=== PATIENT | female | born 1955 | race African-American/Black ===

== ENCOUNTER 2016-07-13 08:17 | Emergency (ER) | payer MEDICARE ==
[2016-07-13 08:27] VITALS: BP 139/86
--- NOTE | 2016-07-13 08:34 | UC ---
Headache HPI - HPI Summary HPI Summary: 60 yo female has had right holiness pain intermittently x 3-4 days Achy Responds to advil no jaw claudication no visual c/o no n/v no f/c - History Of Current Complaint Chief Complaint: UCHeadache Stated Complaint: HEADACHE Time Seen by Provider: 07/13/16 08:32 Hx Obtained From: Patient Onset/Duration: Gradual Onset, Lasting Hours Onset Of Symptoms: Gradual Initially Headache Was: Moderate Currently Pain Is: Moderate Pain Intensity: 4 Pain Scale Used: 0-10 Numeric Timing: Intermittent, Lasting:, Hours Character: Dull Location of Headache: Temporal Aggravating Factor: Nothing Allevating Factors: Medication - advil Associated Signs And Symptoms: Positive: Negative - Allergies/Home Medications Allergies/Adverse Reactions: Allergies Allergy/AdvReac Type Severity Reaction Status Date / Time Aspirin Allergy Intermediate Nausea And Unverified 01/22/15 09:39 Vomiting Erythromycin Allergy Intermediate Nausea And Unverified 01/22/15 09:39 Vomiting Home Medications: Home Medications Albuterol HFA INHALER* [Ventolin HFA Inhaler*] 07/13/16 [History] PMH/Surg Hx/FS Hx/Imm Hx Endocrine History Of: Reports: Thyroid Disease Denies: Diabetes, Hypothyroidism Cardiovascular History Of: Reports: Hypertension Denies: Cardiac Disorders, Pacemaker/ICD Respiratory History Of: Reports: Bronchitis Denies: COPD, Asthma GI/ History Of: Denies: Ulcer Cancer History Of: Denies: Breast Cancer - Surgical History Surgical History: Yes Surgery Procedure, Year, and Place: partial hysterectomy - Family History Known Family History: Positive: Hypertension - Social History Alcohol Use: Rare Substance Use Type: None Smoking Status (MU): Former Smoker Type: Cigarettes Amount Used/How Often: quit 3 months ago Length of Time of Smoking/Using Tobacco: 10 years Have You Smoked in the Last Year: No Household Exposure Type: Cigarettes - Immunization History Most Recent Influenza Vaccination: 2973-4853 Season Review of Systems Constitutional: Negative Skin: Negative Eyes: Negative ENT: Negative Respiratory: Negative Cardiovascular: Negative Gastrointestinal: Negative Genitourinary: Negative Motor: Negative Neurovascular: Negative Musculoskeletal: Negative Neurological: Headache Psychological: Negative All Other Systems Reviewed And Are Negative: Yes Physical Exam Triage Information Reviewed: Yes Appearance: Well-Appearing, No Pain Distress, Well-Nourished Vital Signs: Initial Vital Signs Temp 97.5 F 07/13/16 08:19 Pulse 72 07/13/16 08:19 Resp 16 07/13/16 08:19 BP 139/86 07/13/16 08:19 Pulse Ox 99 07/13/16 08:19 Eyes: Positive: Conjunctiva Clear, Other: - eomi/perrl/fundi- benign. Negative : Conjunctiva Inflamed, Discharge ENT: Positive: Hearing grossly normal, Pharynx normal, TMs normal, Other: - slight tenderness overlying right temporal artery. Negative: Trismus, Muffled/ hoarse voice Neck: Positive: Nontender, No Lymphadenopathy, Other: - decreased ROM/no bruits Respiratory: Positive: Lungs clear, Normal breath sounds, No respiratory distress, No accessory muscle use. Negative: Respiratory distress, Decreased breath sounds Cardiovascular: Positive: RRR, No Murmur Musculoskeletal: Positive: ROM Intact, No Edema Neurological Exam: Normal Neurological: Positive: Alert Psychological Exam: Normal Skin Exam: Normal Headache Course/Dx - Differential Dx/Diagnosis Provider Diagnoses: right temporal pain...? temoral arteritis Discharge - Discharge Plan Condition: Stable Disposition: HOME Prescriptions: Naproxen [Naproxen 500 MG TABS] 500 mg PO BID PRN #30 tab PRN Reason: Pain Prednisone 60 mg PO DAILY #9 tab Patient Education Materials: Temporal Arteritis (ED) Referrals: Darya Solis MD [Primary Care Provider] - As Soon As Possible Additional Instructions: I am unsure of the cause of your headache blood work is pending It could be due to temporal arteritis To ER for new or worsening symptoms See your MD as soon as possible If your ESR (blood test) is elevated you may need to be scheduled for a temporal artery biopsy and need to be on buttermaker helper steroids
[2016-07-13] MEDS ORDERED: predniSONE TAB* 20 MG PO ONE (08:44)
[2016-07-13 12:11] LABS: Hematocrit 35 % (35-47); Hemoglobin 11.6 g/dl (12.0-16.0); Mean Corpuscular HGB Conc 33 g/dl (31-36); Mean Corpuscular Hemoglobin 30 pg (27-31); Mean Corpuscular Volume 89 fL (80-97); Mean Platelet Volume 8 um3 (7.4-10.4); Red Blood Count 3.89 10^6/ul (4.0-5.4); Red Cell Distribution Width 13 % (10.5-15); White Blood Count 5.3 10^3/ul (3.5-10.8)
[2016-07-13 13:00] LABS: Erythrocyte Sed Rate 19 mm/Hr (0-30)
== END 2016-07-13 09:14 | disposition home or self-care (01) ==
LOC: UCEAST 08:17
DX: G44.89 Other headache syndrome (principal); E07.9 Disorder of thyroid, unspecified; I10 Essential (primary) hypertension; Z87.891 Personal history of nicotine dependence; Z88.6 Allergy status to analgesic agent
CPT/HCPCS: 36415; 85025; 85652; 99212; G0463; J7512

== ENCOUNTER 2016-11-10 08:08 | Emergency (ER) | payer MEDICARE ==
[2016-11-10 08:55] VITALS: BP 130/75
--- NOTE | 2016-11-10 09:14 | UC ---
Dental HPI - HPI Summary HPI Summary: Patient has had pain under the back molar on the left side for about a week, it is increasing and now there is swelling and lef sided maxillary sinus pressure. - History of Current Complaint Chief Complaint: UCDentalProblem Stated Complaint: DENTAL COMPLAINT Time Seen by Provider: 11/10/16 08:41 Hx Obtained From: Patient ?: No Onset/Duration: Sudden Onset, Lasting Days Severity: Moderate Aggravating: Chewing Alleviating: Nothing Related History: Previous Dental Care on Same Tooth, Swelling - Allergies/Home Medications Allergies/Adverse Reactions: Allergies Allergy/AdvReac Type Severity Reaction Status Date / Time Aspirin Allergy Intermediate Nausea And Unverified 11/10/16 08:47 Vomiting Erythromycin Allergy Intermediate Nausea And Unverified 11/10/16 08:47 Vomiting Home Medications: Home Medications Fluticasone-Salmeterol 100-50* [Advair Diskus 100-50*] 1 puff PO BID 11/10/16 [ History Confirmed 11/10/16] PMH/Surg Hx/FS Hx/Imm Hx Previously Healthy: Yes Endocrine History Of: Reports: Thyroid Disease Denies: Diabetes, Hypothyroidism Cardiovascular History Of: Reports: Hypertension Denies: Cardiac Disorders, Pacemaker/ICD Respiratory History Of: Reports: Bronchitis Denies: COPD, Asthma GI/ History Of: Denies: Ulcer Cancer History Of: Denies: Breast Cancer - Surgical History Surgical History: Yes Surgery Procedure, Year, and Place: partial hysterectomy - Family History Known Family History: Positive: Hypertension - Social History Alcohol Use: None Substance Use Type: None Smoking Status (MU): Former Smoker Type: Cigarettes Amount Used/How Often: quit 3 months ago Length of Time of Smoking/Using Tobacco: 10 years Have You Smoked in the Last Year: No Household Exposure Type: Cigarettes - Immunization History Most Recent Influenza Vaccination: [id number] Season Review of Systems Constitutional: Negative Skin: Negative Eyes: Negative ENT: Dental Pain Respiratory: Negative Cardiovascular: Negative Gastrointestinal: Negative Genitourinary: Negative Motor: Negative Neurovascular: Negative Musculoskeletal: Negative Neurological: Negative Psychological: Negative All Other Systems Reviewed And Are Negative: Yes Physical Exam Triage Information Reviewed: Yes Appearance: Well-Nourished, Ill-Appearing, Pain Distress Vital Signs: Initial Vital Signs Pulse 78 11/10/16 08:43 Resp 20 11/10/16 08:43 BP 130/75 11/10/16 08:43 Pulse Ox 99 11/10/16 08:43 Vital Signs Reviewed: Yes Eye Exam: Normal Eyes: Positive: Conjunctiva Clear ENT Exam: Normal ENT: Positive: Hearing grossly normal, Pharynx normal, TMs normal Dental: Positive: Gross Decay/Caries @, Abscess @ - far back left molar, tooth fracture and multiple dental caries present, Cervical Lymphadenopathy - left submandibular Neck exam: Normal Neck: Positive: Supple, Nontender, No Lymphadenopathy Respiratory Exam: Normal Respiratory: Positive: Chest non-tender, Lungs clear, Normal breath sounds Cardiovascular Exam: Normal Cardiovascular: Positive: RRR, No Murmur, Pulses Normal Abdominal Exam: Normal Abdomen Description: Positive: Nontender, No Organomegaly, Soft Bowel Sounds: Positive: Present Musculoskeletal Exam: Normal Musculoskeletal: Positive: Strength Intact, ROM Intact, No Edema Neurological Exam: Normal Neurological: Positive: Alert, Muscle Tone Normal Psychological Exam: Normal Skin Exam: Normal Dental Complaint Course/Dx - Course Course Of Treatment: hx obtained, exam performed, meds reviewed, treated for dental abcess and. recommend follow up at her dentist. - Differential Dx/Diagnosis Differential Diagnosis/Dx: Dental Abscess, Dental Caries, Fractured Tooth Provider Diagnoses: dental abcess. sinus pain. lymphadenopathy Discharge - Discharge Plan Condition: Stable Disposition: HOME Prescriptions: Amoxicillin/Clavulanate TAB* [Augmentin TAB 875*] 875 mg PO BID #20 tab Patient Education Materials: Dental Abscess (ED) Referrals: Darya Solis MD [Primary Care Provider] - Additional Instructions: take the medication as prescribed. Increase your fluid intaket Salt water gargles to keep mouth clean. FOllow up with your dentist
== END 2016-11-10 09:21 | disposition home or self-care (01) ==
LOC: UCEAST 08:08
DX: K04.7 Periapical abscess without sinus (principal); J34.89 Other specified disorders of nose and nasal sinuses; R59.1 Generalized enlarged lymph nodes; Z88.6 Allergy status to analgesic agent; Z88.1 Allergy status to other antibiotic agents; E07.9 Disorder of thyroid, unspecified; I10 Essential (primary) hypertension; Z90.711 Acquired absence of uterus with remaining cervical stump; Z87.891 Personal history of nicotine dependence
CPT/HCPCS: 99212; G0463

== ENCOUNTER 2017-10-22 08:54 | Inpatient (IN) | payer MEDICARE ==
[2017-10-22] MEDS ORDERED: NS 0.9% 1000 ML* 1,000 ML IV ONE (09:00)
[2017-10-22] MEDS ORDERED: Ibuprofen TAB* 600 MG PO ONE (09:09)
[2017-10-22] MEDS ORDERED: methylPREDNISolone 125 MG* 2 ML VIAL IV ONE (09:10)
[2017-10-22] MEDS ORDERED: Albuterol/Ipratropium NEB.SOL* Albuterol 2.5 MG/Ipratropium 0.5 MG 3 ML INH ONE (09:10)
[2017-10-22] MEDS: NS 0.9% 1000 ML* 1,500 ML IV ONE ×2 (09:19→09:33)
[2017-10-22 09:31] LABS: ABS Basophils 0 10^3/ul (0-0.2); ABS Eosinophils 0 10^3/ul (0-0.6); ABS Lymphocytes 0.8 10^3/ul (1.0-4.8); ABS Monocytes 0.7 10^3/ul (0-0.8); ABS Neutrophils 4.7 10^3/ul (1.5-7.7); ABS Nucleated RBC 0 10^3/ul; Eosinophil % 0.1 % (0-6); Hematocrit 36 % (35-47); Hemoglobin 12.4 g/dl (12.0-16.0); Mean Corpuscular HGB Conc 34 g/dl (31-36); Mean Corpuscular Hemoglobin 31 pg (27-31); Mean Corpuscular Volume 90 fL (80-97); Mean Platelet Volume 8.3 um3 (7.4-10.4); Nucleated Red Blood Cells % 0; Platelet Count 199 10^3/ul (150-450); Red Blood Count 4.03 10^6/ul (4.0-5.4); Red Cell Distribution Width 14 % (10.5-15); White Blood Count 6.2 10^3/ul (3.5-10.8)
--- NOTE | 2017-10-22 09:44 | RAD ---
INDICATION: Cough and fever COMPARISON: Chest x-ray dated December 08, 2014 TECHNIQUE: PA and lateral views of the chest were obtained. FINDINGS: The heart and mediastinum are normal in size and contour. The lungs are grossly clear. There is no evidence of large pleural effusion. Visualized bones are normal for the patient's age. There is no radiographic evidence of free air beneath the diaphragm IMPRESSION: No radiographic evidence of acute cardiopulmonary disease.
[2017-10-22 09:51] LABS: EGFR Non-African American 34.3 (>60)
[2017-10-22] MEDS ORDERED: Oseltamivir CAP* 75 MG CAP PO ONE (09:54)
[2017-10-22] MEDS ORDERED: Acetaminophen TAB* 325 MG PO ONE (10:03)
[2017-10-22] MEDS ORDERED: Potassium Chloride LIQUID* 20 MEQ PACKET PO ONE (10:05)
[2017-10-22] MEDS ORDERED: Potassium Chloride LIQUID* 20 MEQ PACKET ONE (10:08)
[2017-10-22] MEDS ORDERED: Potassium Chlor TAB* 20 MEQ TAB.ER PO ONE (11:04)
[2017-10-22] MEDS ORDERED: NS 0.9% 1000 ML* 1,000 ML IV SCH (11:15)
[2017-10-22] MEDS ORDERED: Omeprazole CAP* 20 MG PO PRN (11:16)
[2017-10-22] MEDS ORDERED: Ondansetron INJ* 2 MG/ML VIAL IV PRN (11:18)
[2017-10-22] MEDS: Heparin VIAL(*) 5000 UNITS/ML VIAL (FIVE THOUSAND) SUBCUT SCH ×2 (12:59→20:50)
--- NOTE | 2017-10-22 13:36 | HP ---
CC: Dr. Solis * HISTORY AND PHYSICAL: DATE OF ADMISSION: 10/22/17 PRIMARY CARE PROVIDER: Dr. Solis. HEALTHCARE PROXY: Elicia Contreras, her daughter. CODE STATUS: Full. SOURCE OF INFORMATION: History is obtained from interview with patient, review of past medical records. RELIABILITY: Good. CHIEF COMPLAINT: Cough and lightheadedness. HISTORY OF PRESENT ILLNESS: This is a 62-year-old female with past medical history of COPD, has been in her usual state of health until 2 days prior to presentation, started to experience increased sinus congestion as well as sneezing. She started taking Mucinex as well as cough syrup; however, progressed to develop dry cough. Yesterday, she felt that her chest felt little tight. She has tried using her nebulizer, although she noted she did not feel wheezy. In the afternoon, she noted increase in the sneezing, but no other fevers or chills. However, night prior to presentation around 1 a.m., she woke up coughing, had an episode of urinary incontinence associated with chills and shaking that still continued to the morning. She had an appointment with her PCP and while walking down the stairs, she felt lightheaded like she was going to faint. She sat down, put on her shoes without incident; however, upon arriving at her PCP's office and walking through the door, she again felt lightheaded like she was going to pass out. She was seen by Dr. Solis. The patient reports that her blood pressure was low with systolics of 88/unknown diastolic. Because of the lightheadedness, low blood pressure, the patient was referred to [facility] and was transported via EMS. In the emergency room, the patient was noted to be hypotensive; however, had a fever or 103.4, was given a single dose of 125 mg methylprednisolone prior to positive influenza B testing returned. When seen by this author, the patient again noted she does not feel wheezy and her lightheadedness has improved. However, is concerned that if she stands up, she may lose consciousness and/or fall and is concerned about her safety at home. 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 PAST MEDICAL HISTORY: Includes asthma, COPD, hypotension, left ventricular diastolic dysfunction without known heart failure exacerbations, GERD. PAST SURGICAL HISTORY: Positive for partial hysterectomy. MEDICATIONS: Home medications are reviewed, notable for: 1. Tizanidine 1 to 2 mg 3 times a day as needed for muscle spasm. 2. Hydrochlorothiazide 12.5 mg daily. 3. Atorvastatin 10 mg daily. 4. Omeprazole 40 mg as needed. 5. Estradiol 1 mg daily. 6. Synthroid 50 mcg daily. 7. Advair 100/50 one puff twice daily. 8. Lotrel 10/20 mg daily. 9. Albuterol HFA 2 puffs every 4 hours as needed for wheezing or shortness of breath. ALLERGIES: To ASPIRIN, ERYTHROMYCIN BASE. FAMILY HISTORY: Father with prostate cancer; mother at 95, did have hypertension. SOCIAL HISTORY: Smoked for approximately for 40 years, 1 pack per day; however , does have episodes of quitting for 7 years at a time. No alcohol. Retired from [employer]. REVIEW OF SYSTEMS: As per HPI includes, recent cough, sneezing, lightheadedness /presyncope, decreased p.o. intake, shaking chills, and sinus congestion. Otherwise, all other systems negative. PHYSICAL EXAMINATION GENERAL: Sitting up in bed, interactive, pleasant, in no apparent distress, talks in full sentences. VITAL SIGNS: In the emergency room, 113/85, actually when seen by this author 130/85; respiratory rate is 17; 96% on room air; heart rate 98; T-max 103.4 degrees Fahrenheit. NECK: She has non-elevated JVD. No cervical or supraclavicular lymphadenopathy. LUNGS: Her lungs are largely clear with trace wheeze, end expiratory in the bases. HEART: Tachycardic heart rate with a regular rhythm. No murmurs, rubs, or gallops. ABDOMEN: Soft, nontender, nondistended. EXTREMITIES: Warm and well perfused. No clubbing, cyanosis, or edema. NEUROLOGIC: She is alert and oriented x3. Cranial nerves are intact. DIAGNOSTIC STUDIES/LAB DATA: Labs notable for positive influenza B. Potassium 2.7, BUN 14, creatinine 1.5. White blood cell count is 6.2. Data reviewed: Chest x-ray notable for no radiographic evidence of acute cardiopulmonary disease. EKG: Normal sinus rhythm. No ST or T-wave changes. ASSESSMENT AND PLAN: A 62-year-old female with history of asthma as well as chronic obstructive pulmonary disease, presenting with high fever, sensations of presyncope/lightheadedness in the setting of high fevers, found to have positive influenza B. 1. Influenza B complicated by sensation that she almost lost consciousness, high fevers, dehydration. Admit to the hospital at least overnight, start Tamiflu. Received normal saline in the emergency room, will continue at 100 cc/ hour for 1 additional liter, otherwise supportive care. She looks as if she has improved already; however, concerned about discharging home as she is still lightheaded and concerned she may lose consciousness upon standing. 2. Chronic obstructive pulmonary disease, not in exacerbation, received 125 mg IV methylprednisolone in the emergency room, not continue. Continue Advair and albuterol as needed. 3. Hypokalemia, suspect in the setting of recent illness, decreased appetite, increased urination. Received 80 mEq in the emergency room, we will recheck this afternoon. Replete as needed. 4. Increased creatinine. Fluid as above, suspect prerenal. 5. Hypotension. Continue Lotrel, hold hydrochlorothiazide. 6. DVT prophylaxis. Heparin subcu. [id number]/[facility] #: [id number] [facility]
[2017-10-22 14:25] LABS: Urine Appearance Clear; Urine Blood Negative (Negative); Urine Color Straw; Urine Ketones Negative (Negative); Urine Protein Negative (Negative); Urine Specific Gravity 1.004 (1.010-1.030); Urine Urobilinogen Negative (Negative)
[2017-10-22] MEDS: tiZANidine TAB* 2 MG PO PRN ×2 (15:14→20:48)
[2017-10-22 18:04] LABS: EGFR Non-African American 39.6 (>60)
[2017-10-22] MEDS: Mometasone/Formoter 100/5 MDI INH SCH (20:08)
[2017-10-22] MEDS: Oseltamivir CAP* 30 MG CAP PO SCH (20:48)
[2017-10-22] MEDS: Benzonatate CAP* 100 MG PO PRN (21:20)
[2017-10-23] MEDS: Albuterol HFA INHALER* 8 gm MDI INH PRN (03:51)
[2017-10-23] MEDS: Acetaminophen TAB* 325 MG PO PRN (03:56)
[2017-10-23] MEDS: Levothyroxine TAB* 50 MCG TAB PO SCH (05:55)
[2017-10-23] MEDS: Benzonatate CAP* 100 MG PO PRN ×2 (05:55→20:09)
[2017-10-23] MEDS: Heparin VIAL(*) 5000 UNITS/ML VIAL (FIVE THOUSAND) SUBCUT SCH ×3 (05:56→21:20)
[2017-10-23 06:18] LABS: EGFR Non-African American 45.8 (>60)
[2017-10-23] MEDS: Mometasone/Formoter 100/5 MDI INH SCH ×2 (08:00→19:24)
[2017-10-23] MEDS: Lisinopril TAB* 10 MG PO SCH (08:18)
[2017-10-23] MEDS: amLODIPine TAB* 5 MG PO SCH (08:18)
[2017-10-23] MEDS: Oseltamivir CAP* 30 MG CAP PO SCH ×2 (08:18→20:09)
[2017-10-23] MEDS: Atorvastatin* 10 MG TAB PO SCH (08:19)
[2017-10-23] MEDS: tiZANidine TAB* 2 MG PO PRN ×2 (08:26→20:09)
--- NOTE | 2017-10-23 09:04 | PN ---
Subjective Date of Service: 10/23/17 Interval History: Mrs. Miller is doing better this AM. Still feels tired, but denies chest pain or SOB. Cough has improved with nebs and Mucinex. Denies fever, chills or body aches. Has not been ambulating yet, but planning to do that after breakfast. She has no new complaints. Family History: Unchanged from Admission Social History: Unchanged from Admission Past Medical History: Unchanged from Admission Objective Active Medications: Acetaminophen (Tylenol Tab*) 650 mg PO Q4H PRN PRN Reason: FEVER/PAIN Last Admin: 10/23/17 03:56 Dose: 650 mg Albuterol (Ventolin Hfa Inhaler*) 2 puff INH Q4H PRN PRN Reason: SOB/WHEEZING Last Admin: 10/23/17 03:51 Dose: 2 puff Amlodipine Besylate (Norvasc Tab*) 10 mg PO DAILY [facility] Last Admin: 10/23/17 08:18 Dose: 10 mg Atorvastatin Calcium (Lipitor*) 10 mg PO DAILY [facility] Last Admin: 10/23/17 08:19 Dose: 10 mg Benzonatate (Tessalon Cap*) 100 mg PO BID PRN PRN Reason: COUGH Last Admin: 10/23/17 05:55 Dose: 100 mg Heparin Sodium (Porcine) (Heparin Vial(*)) 5,000 units SUBCUT Q8HR [facility] Last Admin: 10/23/17 05:56 Dose: 5,000 units Levothyroxine Sodium (Synthroid Tab*) 50 mcg PO 0600 [facility] Last Admin: 10/23/17 05:55 Dose: 50 mcg Lisinopril (Prinivil Tab*) 20 mg PO DAILY [facility] Last Admin: 10/23/17 08:18 Dose: 20 mg Mometasone Furoate/Formoterol Fumar (Dulera 100/5 Mdi*) 2 puff INH BID [facility] Last Admin: 10/23/17 08:00 Dose: 2 puff Omeprazole (Prilosec Cap*) 40 mg PO DAILY PRN PRN Reason: DYSPEPSIA Ondansetron HCl (Zofran Inj*) 4 mg IV Q4H PRN PRN Reason: NAUSEA/VOMITING Oseltamivir Phosphate (Tamiflu Cap*) 30 mg PO BID [facility] Stop: 10/27/17 09:01 Last Admin: 10/23/17 08:18 Dose: 30 mg Tizanidine HCl (Zanaflex Tab*) 1 mg PO TID PRN PRN Reason: SPASMS - MUSCLE Last Admin: 10/23/17 08:26 Dose: 1 mg Vital Signs - 8 hr 10/23/17 10/23/17 03:33 07:40 Temperature 98.1 F 98.4 F Pulse Rate 70 65 Respiratory 16 21 Rate Blood Pressure 140/72 129/67 (mmHg) O2 Sat by Pulse 96 96 Oximetry Oxygen Devices in Use Now: None Appearance: Appears healthy and well developed. Sitting up on her bed, eating breakfast, comfortable and in NAD. Eyes: No Scleral Icterus, PERRLA Ears/Nose/Mouth/Throat: Clear Oropharnyx, Mucous Membranes Moist Neck: NL Appearance and Movements; NL JVP, Trachea Midline Respiratory: Symmetrical Chest Expansion and Respiratory Effort, - - Mild bibasilar wheezes noted, no rales or rhonchi. Cardiovascular: NL Sounds; No Murmurs; No JVD, RRR Abdominal: NL Sounds; No Tenderness; No Distention, No Hepatosplenomegaly Lymphatic: No Cervical Adenopathy Extremities: No Edema, No Clubbing, Cyanosis Skin: No Rash or Ulcers Neurological: Alert and Oriented x 3, NL Sensation Lines/Tubes/Other Access: Clean, Dry and Intact Peripheral IV Nutrition: Taking PO's Result Diagrams: 10/22/17 09:20 10/23/17 05:49 Diagnostic Imaging: Patient Name: KYRIE MILLER Medical Record#: [id number] Ordering Physician: Josue Valenzuela MD Acct.#: [id number] : 1955 Age: 62 Sex: F Location: EMERGENCY DEPARTMENT Exam Date: 10/22/17908 ADM Status: REG ER Order Information: CHEST PA & LAT 2 VWS Accession Number: [id number] CPT: 73708 INDICATION: Cough and fever COMPARISON: Chest x-ray dated December 08, 2014 IMPRESSION: No radiographic evidence of acute cardiopulmonary disease. EKG Data: EKG INTERPRETATION ECG Report Patient Name KYRIE MILLER Birthdate 1955 Sex F Order Number [id number] Date of ECG 10/22/2017 09:11:15 Interpretation Sinus rhythm.normal P axis, V-rate 60- 99 Borderline repolarization - ABNORMAL ECG - Assess/Plan/Problems-Billing Assessment: A 62 y/o female with Hx asthma and COPD, presented to ED with URI symptoms and fever, who was found to have Influenza B, dehydration, hypokalemia and elevated creatinine. - Patient Problems (1) Influenza B Current Visit: Yes Status: Acute Comment: - Started Tamiflu and will continue for next 5 days - Dropplet precautions - Fever resolved with Tylenol - Supportive care (2) COPD Current Visit: Yes Status: Active Comment: - Continue albuterol and advir - No exacerbations noted - Recieved a dose of solumedrol in ED, will not continue (3) Hypokalemia Current Visit: Yes Comment: - Replace K - Check labs in AM (4) Dehydration Current Visit: Yes Comment: - Improving already with 1 liter bolus in ED - Continue gentle hydration and encourage PO intake (5) Hypotension Current Visit: Yes Comment: - Resolved (6) Elevated serum creatinine Current Visit: Yes Comment: - Likely in setting of dehydration and viral illness - Continue IVF - Improving (7) Full code status Current Visit: Yes (8) DVT prophylaxis Current Visit: Yes Comment: - SubQ Heparin Status and Disposition: Inpatient for anti-viral therapy, neb treatments and supportive care. Patient is feeling better, worried about going home too early since she lives alone. Anticipate discharge when clinically stable.
[2017-10-23] MEDS: guaiFENesin LIQ* 100 MG/5 ML UDC PO PRN ×2 (10:52→20:09)
[2017-10-23] MEDS: CMCS: Melatonin (NF) 3 MG TAB PO PRN (20:46)
[2017-10-24] MEDS: Albuterol HFA INHALER* 8 gm MDI INH PRN (01:16)
[2017-10-24] MEDS: Acetaminophen TAB* 325 MG PO PRN (01:17)
[2017-10-24] MEDS: Heparin VIAL(*) 5000 UNITS/ML VIAL (FIVE THOUSAND) SUBCUT SCH ×3 (05:41→21:17)
[2017-10-24] MEDS: Levothyroxine TAB* 50 MCG TAB PO SCH (05:42)
[2017-10-24] MEDS: Mometasone/Formoter 100/5 MDI INH SCH ×2 (07:08→19:09)
[2017-10-24] MEDS: Lisinopril TAB* 10 MG PO SCH (08:14)
[2017-10-24] MEDS: amLODIPine TAB* 5 MG PO SCH (08:14)
[2017-10-24] MEDS: Atorvastatin* 10 MG TAB PO SCH (08:14)
[2017-10-24] MEDS: Oseltamivir CAP* 30 MG CAP PO SCH ×2 (08:15→21:13)
[2017-10-24] MEDS: tiZANidine TAB* 2 MG PO PRN ×2 (08:19→21:12)
[2017-10-24] MEDS: guaiFENesin LIQ* 100 MG/5 ML UDC PO PRN ×2 (08:20→23:58)
--- NOTE | 2017-10-24 15:53 | PN ---
Subjective Date of Service: 10/24/17 Interval History: patient reports she is feeling better everyday but continues to have a harsh cough and generalized weakness, low grade temp this am. Denies chills. Occasionally productive cough. Reports SOB withe exertion. She reports she has a hx of oral thrush and has felt this week it was returning and had an appointment to see her primary but was then admitted. Family History: Unchanged from Admission Social History: Unchanged from Admission Past Medical History: Unchanged from Admission Objective Active Medications: Acetaminophen (Tylenol Tab*) 650 mg PO Q4H PRN PRN Reason: FEVER/PAIN Last Admin: 10/24/17 01:17 Dose: 650 mg Albuterol (Ventolin Hfa Inhaler*) 2 puff INH Q4H PRN PRN Reason: SOB/WHEEZING Last Admin: 10/24/17 01:16 Dose: 2 puff Amlodipine Besylate (Norvasc Tab*) 10 mg PO DAILY [facility] Last Admin: 10/24/17 08:14 Dose: 10 mg Atorvastatin Calcium (Lipitor*) 10 mg PO DAILY [facility] Last Admin: 10/24/17 08:14 Dose: 10 mg Benzonatate (Tessalon Cap*) 100 mg PO BID PRN PRN Reason: COUGH Last Admin: 10/23/17 20:09 Dose: 100 mg Guaifenesin (Robitussin*) 5 ml PO Q6H PRN PRN Reason: COUGH Last Admin: 10/24/17 08:20 Dose: 5 ml Heparin Sodium (Porcine) (Heparin Vial(*)) 5,000 units SUBCUT Q8HR [facility] Last Admin: 10/24/17 13:39 Dose: Not Given Lactobacillus Rhamnosus (Culturelle*) 1 cap PO BID [facility] Levothyroxine Sodium (Synthroid Tab*) 50 mcg PO 0600 [facility] Last Admin: 10/24/17 05:42 Dose: 50 mcg Lisinopril (Prinivil Tab*) 20 mg PO DAILY [facility] Last Admin: 10/24/17 08:14 Dose: 20 mg Melatonin (Melatonin (Nf)) 3 mg PO BEDTIME PRN PRN Reason: INSOMNIA Last Admin: 10/23/17 20:46 Dose: 3 mg Mometasone Furoate/Formoterol Fumar (Dulera 100/5 Mdi*) 2 puff INH BID [facility] Last Admin: 10/24/17 07:08 Dose: 2 puff Omeprazole (Prilosec Cap*) 40 mg PO DAILY PRN PRN Reason: DYSPEPSIA Ondansetron HCl (Zofran Inj*) 4 mg IV Q4H PRN PRN Reason: NAUSEA/VOMITING Oseltamivir Phosphate (Tamiflu Cap*) 30 mg PO BID [facility] Stop: 10/27/17 09:01 Last Admin: 10/24/17 08:15 Dose: 30 mg Tizanidine HCl (Zanaflex Tab*) 1 mg PO TID PRN PRN Reason: SPASMS - MUSCLE Last Admin: 10/24/17 08:19 Dose: 1 mg Vital Signs - 8 hr 10/24/17 10/24/17 10/24/17 11:21 11:30 13:58 Temperature 98.3 F Pulse Rate 64 72 Respiratory 22 Rate Blood Pressure 93/48 98/52 110/50 (mmHg) O2 Sat by Pulse 94 Oximetry 10/24/17 14:59 Temperature 98.8 F Pulse Rate 68 Respiratory 24 Rate Blood Pressure 109/51 (mmHg) O2 Sat by Pulse 100 Oximetry Oxygen Devices in Use Now: None Appearance: 62 yo female A+O x3 in NAD Eyes: No Scleral Icterus, PERRLA Ears/Nose/Mouth/Throat: NL Teeth, Lips, Gums, Mucous Membranes Moist, - - white noted jelena patches on tongue only Respiratory: Symmetrical Chest Expansion and Respiratory Effort, - - scattered rhonchi Cardiovascular: NL Sounds; No Murmurs; No JVD, RRR, No Edema Abdominal: NL Sounds; No Tenderness; No Distention Lymphatic: No Cervical Adenopathy Extremities: No Edema, No Clubbing, Cyanosis Skin: No Rash or Ulcers, No Nodules or Sclerosis Neurological: Alert and Oriented x 3, NL Sensation, NL Gait, NL Muscle Strength and Tone Lines/Tubes/Other Access: Clean, Dry and Intact Peripheral IV Nutrition: Taking PO's Result Diagrams: 10/22/17 09:20 10/23/17 05:49 Diagnostic Imaging: Patient Name: KYRIE ROJAS Medical Record#: [id number] Ordering Physician: Josue Valenzuela MD Acct.#: [id number] : 1955 Age: 62 Sex: F Location: EMERGENCY DEPARTMENT Exam Date: 10/22/17908 ADM Status: REG ER Order Information: CHEST PA & LAT 2 VWS Accession Number: [id number] CPT: 30862 INDICATION: Cough and fever COMPARISON: Chest x-ray dated December 08, 2014 IMPRESSION: No radiographic evidence of acute cardiopulmonary disease. EKG Data: EKG INTERPRETATION ECG Report Patient Name KYRIE ROJAS Birthdate 1955 Sex F Order Number [id number] Date of ECG 10/22/2017 09:11:15 Interpretation Sinus rhythm.normal P axis, V-rate 60- 99 Borderline repolarization - ABNORMAL ECG - Assess/Plan/Problems-Billing Assessment: A 62 y/o female with Hx asthma and COPD, presented to ED with URI symptoms and fever, who was found to have Influenza B, dehydration, hypokalemia and elevated creatinine. - Patient Problems (1) Influenza B Comment: - Started Tamiflu and will continue for next 5 days - Dropplet precautions - Low grade temp this am - No supplemental O2 required. ambulate patient and check O2 sat - Supportive care (2) Thrush, oral Comment: - pt reports hx of oral thrush d/t frequent prednisone use 2nd to COPD /Asthma exacerbations. - ONly note thrush on tongue but pt reports she can feel it in her throat. - Plan to tx with Diflucan 100 mg x 14 days - HIV test (pt agrees) - last test 2012 (negative) (3) COPD Comment: - Continue albuterol and advir (4) Dehydration Comment: - Improving IV NS (5) Elevated serum creatinine Comment: - Likely in setting of dehydration and viral illness - Now at baseline, recheck in am (6) HIGH BLOOD PRESSURE Comment: continue eloise and norvasc (7) Hypokalemia Comment: - Replace K - Check labs in AM (8) DVT prophylaxis Comment: - SubQ Heparin (9) Full code status Status and Disposition: Inpatient for anti-viral therapy, neb treatments and supportive care. Patient is feeling better, worried about going home too early since she lives alone. Anticipate discharge tomorrow
[2017-10-24] MEDS ORDERED: Fluconazole 100 MG TAB* TAB PO ONE (15:59)
[2017-10-24] MEDS: CMCS: Melatonin (NF) 3 MG TAB PO PRN (21:12)
[2017-10-24] MEDS: Lactobacillus Acidophilus* 1 TAB PO SCH (21:13)
[2017-10-25] MEDS: Heparin VIAL(*) 5000 UNITS/ML VIAL (FIVE THOUSAND) SUBCUT SCH ×2 (05:23→16:01)
[2017-10-25] MEDS: Levothyroxine TAB* 50 MCG TAB PO SCH (05:41)
[2017-10-25] MEDS: Mometasone/Formoter 100/5 MDI INH SCH (07:04)
[2017-10-25 07:14] LABS: ABS Basophils 0 10^3/ul (0-0.2); ABS Eosinophils 0 10^3/ul (0-0.6); ABS Lymphocytes 1.5 10^3/ul (1.0-4.8); ABS Monocytes 0.5 10^3/ul (0-0.8); ABS Nucleated RBC 0 10^3/ul; Eosinophil % 0.7 % (0-6); Hematocrit 30 % (35-47); Hemoglobin 10.7 g/dl (12.0-16.0); Lymphocyte % 21.5 % (25-47); Mean Corpuscular HGB Conc 36 g/dl (31-36); Mean Corpuscular Hemoglobin 32 pg (27-31); Mean Corpuscular Volume 89 fL (80-97); Mean Platelet Volume 7.8 um3 (7.4-10.4); Nucleated Red Blood Cells % 0; Platelet Count 217 10^3/ul (150-450); Red Blood Count 3.39 10^6/ul (4.0-5.4); Red Cell Distribution Width 14 % (10.5-15)
[2017-10-25 07:17] LABS: EGFR Non-African American 47.2 (>60)
[2017-10-25] MEDS: guaiFENesin LIQ* 100 MG/5 ML UDC PO PRN (08:05)
[2017-10-25] MEDS: Acetaminophen TAB* 325 MG PO PRN (08:05)
[2017-10-25] MEDS: Benzonatate CAP* 100 MG PO PRN (08:05)
[2017-10-25] MEDS: Oseltamivir CAP* 30 MG CAP PO SCH (08:05)
[2017-10-25] MEDS: amLODIPine TAB* 5 MG PO SCH (08:06)
[2017-10-25] MEDS: Lactobacillus Acidophilus* 1 TAB PO SCH (08:06)
[2017-10-25] MEDS: Atorvastatin* 10 MG TAB PO SCH (08:06)
[2017-10-25] MEDS: Lisinopril TAB* 10 MG PO SCH (08:06)
[2017-10-25] MEDS ORDERED: Magnesium Sulfate 2 GM IV* 2 GM/50 ML BAG IVPB ONE (08:37)
[2017-10-25] MEDS ORDERED: Fluconazole 100 MG TAB* TAB PO SCH (09:00)
[2017-10-25] MEDS ORDERED: Potassium Chlor TAB* 20 MEQ TAB.ER PO SCH (09:00)
[2017-10-25] MEDS: KCL 10 MEQ/50 ML IVPREMIX* 10 MEQ/50 ML BAG IV SCH ×3 (12:40→15:49)
[2017-10-25 13:36] VITALS: BP 122/68
[2017-10-25] MEDS ORDERED: Potassium Chlor TAB* 20 MEQ TAB.ER PO ONE (15:30)
--- NOTE | 2017-10-25 15:34 | DCNOTE ---
Subjective Date of Service: 10/25/17 Interval History: patient feels better and would like to go home. Low grade temp and BETH this am, now feeling better. Reports cough but states it is improving, little sputum production, Denies SOB/CP. Reports good appetite. No N/V/D Family History: Unchanged from Admission Social History: Unchanged from Admission Past Medical History: Unchanged from Admission Objective Active Medications: Acetaminophen (Tylenol Tab*) 650 mg PO Q4H PRN PRN Reason: FEVER/PAIN Last Admin: 10/25/17 08:05 Dose: 650 mg Albuterol (Ventolin Hfa Inhaler*) 2 puff INH Q4H PRN PRN Reason: SOB/WHEEZING Last Admin: 10/24/17 01:16 Dose: 2 puff Amlodipine Besylate (Norvasc Tab*) 10 mg PO DAILY [facility] Last Admin: 10/25/17 08:06 Dose: 10 mg Atorvastatin Calcium (Lipitor*) 10 mg PO DAILY [facility] Last Admin: 10/25/17 08:06 Dose: 10 mg Benzonatate (Tessalon Cap*) 100 mg PO BID PRN PRN Reason: COUGH Last Admin: 10/25/17 08:05 Dose: 100 mg Fluconazole (Diflucan 100 Mg Tab*) 100 mg PO DAILY [facility] Stop: 11/07/17 08:59 Last Admin: 10/25/17 08:06 Dose: 100 mg Guaifenesin (Robitussin*) 5 ml PO Q6H PRN PRN Reason: COUGH Last Admin: 10/25/17 08:05 Dose: 5 ml Heparin Sodium (Porcine) (Heparin Vial(*)) 5,000 units SUBCUT Q8HR [facility] Last Admin: 10/25/17 05:23 Dose: Not Given Lactobacillus Rhamnosus (Culturelle*) 1 cap PO BID [facility] Last Admin: 10/25/17 08:06 Dose: 1 cap Levothyroxine Sodium (Synthroid Tab*) 50 mcg PO 0600 [facility] Last Admin: 10/25/17 05:41 Dose: 50 mcg Lisinopril (Prinivil Tab*) 20 mg PO DAILY [facility] Last Admin: 10/25/17 08:06 Dose: 20 mg Melatonin (Melatonin (Nf)) 3 mg PO BEDTIME PRN PRN Reason: INSOMNIA Last Admin: 10/24/17 21:12 Dose: 3 mg Mometasone Furoate/Formoterol Fumar (Dulera 100/5 Mdi*) 2 puff INH BID [facility] Last Admin: 10/25/17 07:04 Dose: 2 puff Omeprazole (Prilosec Cap*) 40 mg PO DAILY PRN PRN Reason: DYSPEPSIA Ondansetron HCl (Zofran Inj*) 4 mg IV Q4H PRN PRN Reason: NAUSEA/VOMITING Last Admin: 10/25/17 08:14 Dose: 4 mg Oseltamivir Phosphate (Tamiflu Cap*) 30 mg PO BID [facility] Stop: 10/27/17 09:01 Last Admin: 10/25/17 08:05 Dose: 30 mg Potassium Chloride (Klor Con Er Tab*) 20 meq PO BID [facility] Last Admin: 10/25/17 10:33 Dose: 20 meq Potassium Chloride (Klor Con Er Tab*) 40 meq PO ONCE ONE Stop: 10/25/17 15:31 Tizanidine HCl (Zanaflex Tab*) 1 mg PO TID PRN PRN Reason: SPASMS - MUSCLE Last Admin: 10/24/17 21:12 Dose: 1 mg Vital Signs - 8 hr 10/25/17 10/25/17 10/25/17 07:34 08:00 11:55 Temperature 99.1 F 98.2 F Pulse Rate 84 71 Respiratory 18 18 16 Rate Blood Pressure 119/76 122/68 (mmHg) O2 Sat by Pulse 97 93 Oximetry Oxygen Devices in Use Now: None Appearance: well developed 62 yo female sitting up in a chair in NAD A+O x3 Eyes: No Scleral Icterus, PERRLA Ears/Nose/Mouth/Throat: NL Teeth, Lips, Gums, Mucous Membranes Moist Neck: NL Appearance and Movements; NL JVP Respiratory: Symmetrical Chest Expansion and Respiratory Effort, Clear to Auscultation Cardiovascular: NL Sounds; No Murmurs; No JVD, RRR, No Edema Abdominal: NL Sounds; No Tenderness; No Distention Lymphatic: No Cervical Adenopathy Extremities: No Edema, No Clubbing, Cyanosis Skin: No Rash or Ulcers Neurological: Alert and Oriented x 3, NL Sensation, NL Gait, NL Muscle Strength and Tone Lines/Tubes/Other Access: Clean, Dry and Intact Peripheral IV Nutrition: Taking PO's Result Diagrams: 10/25/17 06:39 10/25/17 06:39 Diagnostic Imaging: Patient Name: KYRIE ROJAS Medical Record#: [id number] Ordering Physician: Josue Valenzuela MD Acct.#: [id number] : 1955 Age: 62 Sex: F Location: EMERGENCY DEPARTMENT Exam Date: 10/22/17908 ADM Status: REG ER Order Information: CHEST PA & LAT 2 VWS Accession Number: [id number] CPT: 19811 INDICATION: Cough and fever COMPARISON: Chest x-ray dated December 08, 2014 IMPRESSION: No radiographic evidence of acute cardiopulmonary disease. EKG Data: EKG INTERPRETATION ECG Report Patient Name KYRIE ROJAS Birthdate 1955 Sex F Order Number [id number] Date of ECG 10/22/2017 09:11:15 Interpretation Sinus rhythm.normal P axis, V-rate 60- 99 Borderline repolarization - ABNORMAL ECG - Assess/Plan/Problems-Billing Assessment: A 62 y/o female with Hx asthma and COPD, presented to ED with URI symptoms and fever, who was found to have Influenza B, dehydration, hypokalemia and elevated creatinine. - Patient Problems (1) Influenza B Comment: - Started Tamiflu and will continue course 6/10 doses - DC home with Rx - Dropplet precautions - Low grade temp this am - now feeling much better - Pt ambulated - O2 98% - Supportive care (2) Thrush, oral Comment: - pt reports hx of oral thrush d/t frequent prednisone use 2nd to COPD /Asthma exacerbations. - Only note thrush on tongue but pt reports she can feel it in her throat. - Plan to tx with Diflucan 100 mg x 14 days - DC home with Rx - HIV test negative (3) COPD Comment: - controlled - Continue albuterol and advir (4) Dehydration Comment: - Resolved with IV NS (5) Elevated serum creatinine Comment: - Likely in setting of dehydration and viral illness - Now at baseline, recheck in am (6) HIGH BLOOD PRESSURE Comment: continue eloise and norvasc (7) Hypokalemia Comment: - Replace K - send home with potassium Rx and magnesium Rx - Check labs in one week (8) DVT prophylaxis Comment: - SubQ Heparin (9) Full code status Status and Disposition: Inpatient. DC to home. F/u with PCP 3-07 days
== END 2017-10-25 16:30 | disposition home or self-care (01) | DRG 153 ==
LOC: ED 08:54 → MED 11:18 → OBSVTOIN 10-24 15:51
PROVIDERS: ADMIT Internal Medicine; ATTEND Internal Medicine
DX: J11.1 Influenza due to unidentified influenza virus with other respiratory manifestations (principal); B37.0 Candidal stomatitis; J44.9 Chronic obstructive pulmonary disease, unspecified; E86.0 Dehydration; I10 Essential (primary) hypertension; E87.6 Hypokalemia; I51.89 Other ill-defined heart diseases; K21.9 Gastro-esophageal reflux disease without esophagitis; R82.99 Other abnormal findings in urine; Z79.899 Other long term (current) drug therapy; Z88.6 Allergy status to analgesic agent; Z88.1 Allergy status to other antibiotic agents; Z80.42 Family history of malignant neoplasm of prostate; Z82.49 Family history of ischemic heart disease and other diseases of the circulatory system; Z87.891 Personal history of nicotine dependence
CPT/HCPCS: 36415; 71046; 80048; 80053; 81003; 83605; 83735; 84484; 85025; 86703; 87502; 93005; 94640; 99284; A9270-GY; G0378; J1644; J2405; J2930; J3475; J3480

== ENCOUNTER 2019-02-13 08:17 | Emergency (ER) | payer MEDICARE ==
[2019-02-13 08:27] VITALS: BP 84/52
--- NOTE | 2019-02-13 08:47 | UC ---
[facility] HPI - HPI Summary HPI Summary: R lower jaw pain after 3 days of pain pt feels she has an abscess. Has dental appt tomorrow but they advised her to come to urgent care to get antibx. Denies fever or dysphagia. - History of Current Complaint Chief Complaint: UCDentalProblem Stated Complaint: TOOTH PAIN Time Seen by Provider: 02/13/19 08:41 Hx Obtained From: Patient ?: No Pain Intensity: 10 Pain Scale Used: 0-10 Numeric Aggravating Factor(s): Cold, Chewing Alleviating Factor(s): Nothing - Allergies/Home Medications Allergies/Adverse Reactions: Allergies Allergy/AdvReac Type Severity Reaction Status Date / Time aspirin Allergy Nausea And Verified 10/22/17 09:02 Vomiting erythromycin base Allergy Nausea And Verified 10/22/17 09:02 Vomiting PMH/Surg Hx/FS Hx/Imm Hx Previously Healthy: Yes Endocrine History: Thyroid Disease Cardiovascular History: Cardiac Disease, Hypertension GI/ History: Gastroesophageal Reflux - Surgical History Surgical History: Yes Surgery Procedure, Year, and Place: partial hysterectomy - Family History Known Family History: Positive: Hypertension - Social History Alcohol Use: Occasionally Substance Use Type: None Smoking Status (MU): Former Smoker Type: Cigarettes Amount Used/How Often: quit 3 months ago Length of Time of Smoking/Using Tobacco: 10 years Have You Smoked in the Last Year: No Household Exposure Type: Cigarettes - Immunization History Most Recent Influenza Vaccination: Fall 2016 Most Recent Pneumonia Vaccination: "A few years ago" Review of Systems All Other Systems Reviewed And Are Negative: Yes Constitutional: Negative: Fever Skin: Negative: Rash, Bruising ENT: Positive: Dental Pain. Negative: Sore Throat Neurological: Negative: Headache, Weakness Physical Exam Triage Information Reviewed: Yes Appearance: Well-Appearing Vital Signs: Initial Vital Signs Temp 98.5 F 02/13/19 08:22 Pulse 62 02/13/19 08:22 Resp 16 02/13/19 08:22 BP 84/52 02/13/19 08:22 Pulse Ox 100 02/13/19 08:22 Vital Signs Reviewed: Yes ENT: Positive: Pharynx normal, Dental tenderness - R lower gumline inflammed., Uvula midline. Negative: Trismus Dental: Positive: Abscess @ - R lower, Other: - POOR DENTITION. Negative: Bleeding Neck: Positive: Supple, Nontender, No Lymphadenopathy Respiratory Exam: Normal Cardiovascular Exam: Normal Dental Complaint Course/Dx - Course Course Of Treatment: R lower tooth pain w /gum pain x3 days. has appt w/ dentist tomorrow and they suggested having her come in for antibx. Will also tx pain and give \\ fluconazole for possible yeast infxn as she is prone. On exam gum line swollen, inflamed and has poor dentition. nO TRISMUS. Vitals good. Of nOte pt intolerant to ASA not allergic. - Differential Dx/Diagnosis Differential Diagnosis/Dx: Dental Abscess, Dental Caries, Fractured Tooth, Odontogenic Pain Provider Diagnosis: Dental abscess Discharge - Sign-Out/Discharge Documenting (check all that apply): Patient Departure All imaging exams completed and their final reports reviewed: No Studies - Discharge Plan Condition: Good Disposition: HOME Prescriptions: Amoxicillin/Clavulanate TAB* [Augmentin TAB 875*] 875 mg PO BID 7 Days #14 tab Fluconazole 150 MG TAB* [Diflucan 150 MG TAB*] 150 mg PO ONCE 1 Days #1 tablet Ibuprofen [Ibu] 600 mg PO Q6HR 15 Days #60 tablet Patient Education Materials: Dental Abscess (ED) Referrals: Darya Solis MD [Primary Care Provider] - Additional Instructions: Please keep your dental appt tomorrow. - Billing Disposition and Condition Condition: GOOD Disposition: Home - Attestation Statements Provider Attestation: This patient was not seen by me. I was available to consult. [email or web address]
== END 2019-02-13 08:58 | disposition home or self-care (01) ==
LOC: UCEAST 08:17
DX: K04.7 Periapical abscess without sinus (principal); Z87.891 Personal history of nicotine dependence
CPT/HCPCS: 99212; G0463

== ENCOUNTER 2019-06-12 06:50 | Emergency (ER) | payer MEDICARE ==
[2019-06-12 06:55] VITALS: BP 133/85
--- NOTE | 2019-06-12 07:20 | ED ---
Shortness of Breath - HPI Summary HPI Summary: 63-year-old -[place] female with a past medical history of COPD presents to emergency department today complaining of upper respiratory infection 4 days. She states her granddaughter has had a URI for 1 week and is resolving however she now feels sick. She has been complaining of nasal congestion, productive cough, mild shortness of breath 5 days. She states she has been taking Mucinex for symptoms with minimal relief. She denies fever, chest pain, abdominal pain, nausea, vomiting, diarrhea, pain with urination. - History of Current Complaint Chief Complaint: EDUpperRespComplaint Time Seen by Provider: 06/12/19 07:04 Hx Obtained From: Patient Onset/Duration: Gradual Onset, Lasting Days Timing: Constant Current Severity: Mild Alleviating Factors: Bronchodilators, OTC Meds - mucinex Associated Signs & Symptoms: Cough (Productive), Nasal Congestion - Allergy/Home Medications Allergies/Adverse Reactions: Allergies Allergy/AdvReac Type Severity Reaction Status Date / Time aspirin Allergy Nausea And Verified 06/12/19 06:54 Vomiting erythromycin base Allergy Nausea And Verified 06/12/19 06:54 Vomiting PMH/Surg Hx/FS Hx/Imm Hx Endocrine/Hematology History: Reports: Hx Thyroid Disease - Hypothyroidism Denies: Hx Diabetes, Hx Anemia Cardiovascular History: Reports: Hx Hypercholesterolemia, Hx Hypertension Denies: Hx Pacemaker/ICD Respiratory History: Reports: Hx Chronic Bronchitis, Hx Chronic Obstructive Pulmonary Disease (COPD) Denies: Hx Asthma Comment Only: Other Respiratory Problems/Disorders - COPD GI History: Denies: Hx Jaundice, Hx Ulcer Musculoskeletal History: Reports: Other Musculoskeletal History - Rib Fracture Sensory History: Reports: Hx Contacts or Glasses - reading Denies: Hx Hearing Aid Opthamlomology History: Reports: Hx Contacts or Glasses - reading Psychiatric History: Denies: Hx Panic Disorder - Cancer History Hx Chemotherapy: No Hx Radiation Therapy: No - Surgical History Surgery Procedure, Year, and Place: partial hysterectomy - Immunization History Date of Tetanus Vaccine: Unknown Date of Influenza Vaccine: 2013 Infectious Disease History: No Infectious Disease History: Denies: Hx Clostridium Difficile, Hx Hepatitis, Hx Human Immunodeficiency Virus (HIV), Hx of Known/Suspected MRSA, Hx Shingles, Hx Tuberculosis, Hx Known/ Suspected VRE, Hx Known/Suspected VRSA, History Other Infectious Disease, Traveled Outside the [place] in Last 30 Days - Family History Known Family History: Positive: Hypertension - Social History Alcohol Use: Occasionally Substance Use Type: Reports: None Smoking Status (MU): Former Smoker Type: Cigarettes Amount Used/How Often: quit 3 months ago Length of Time of Smoking/Using Tobacco: 10 years Have You Smoked in the Last Year: No Review of Systems Constitutional: Negative Eyes: Negative ENT: Negative Cardiovascular: Negative Positive: Cough Gastrointestinal: Negative Genitourinary: Negative Musculoskeletal: Negative Skin: Negative Neurological: Negative Psychological: Normal All Other Systems Reviewed And Are Negative: Yes Physical Exam Triage Information Reviewed: Yes Vital Signs On Initial Exam: Initial Vitals Temp Pulse Resp BP Pulse Ox 99.6 F 92 15 133/85 97 06/12/19 06:53 06/12/19 06:53 06/12/19 06:53 06/12/19 06:53 06/12/19 06:53 Vital Signs Reviewed: Yes Appearance: Positive: Well-Appearing, No Pain Distress, Well-Nourished Skin: Positive: Warm, Skin Color Reflects Adequate Perfusion Eyes: Positive: Normal, EOMI, ROSALBA ENT: Positive: Hearing grossly normal Respiratory/Lung Sounds: Positive: Breath Sounds Present, Rhonchi - Throughout precordium Cardiovascular: Positive: RRR, S1, S2 Musculoskeletal: Positive: Strength/ROM Intact Neurological: Positive: Sensory/Motor Intact, Alert, Oriented to Person Place, Time, Normal Gait, Speech Normal Psychiatric: Positive: Normal AVPU Assessment: Alert Procedures - Sedation Patient Received Moderate/Deep Sedation with Procedure: No Diagnostics - Vital Signs Vital Signs Temp Pulse Resp BP Pulse Ox 06/12/19 06:53 99.6 F 92 15 133/85 97 - Laboratory Lab Statement: Any lab studies that have been ordered have been reviewed, and results considered in the medical decision making process. Course/Dx - Course Course Of Treatment: Patient was evaluated in the ER for an upper respiratory infection. Patient was seen and examined her vitals are stable and she is afebrile. No laboratory studies were needed further evaluation of this patient. A chest x-ray was offered to the patient based on her history of COPD however she declined. She was given Sudafed and Mucinex for her symptoms. She was told to go to the pharmacy and purchased Mucinex and Sudafed which may be taken as needed for her symptoms until resolution of her viral upper respiratory infection. She was told to follow up with her primary care provider in 2 days for reevaluation due to her risk of pneumonia. She was told to return to emergency department immediately if she develops any new or worsening symptoms. - Diagnoses Differential Diagnosis/HQI/PQRI: Positive: Bronchitis, COPD Exacerbation, Pneumonia, Other - URI Provider Diagnoses: URI (upper respiratory infection) Discharge ED - Sign-Out/Discharge Documenting (check all that apply): Patient Departure - Discharge Plan Condition: Stable Disposition: HOME Patient Education Materials: Upper Respiratory Infection (ED) Referrals: Darya Solis MD [Primary Care Provider] - 2 Days Additional Instructions: You were seen in the emergency department today for an upper respiratory infection which is likely viral in origin. Please go to the pharmacy and get Mucinex and pseudoephedrine for symptom relief. You may also take NyQuil at night to help with sleep. Please follow-up with your primary care provider in 2 -3 days for further evaluation and management due to your history of COPD and pneumoniaand risk of . Please return to the emergency department immediately if you develop any new or worsening symptoms. - Billing Disposition and Condition Condition: STABLE Disposition: Home
[2019-06-12] MEDS ORDERED: Pseudoephedrine TAB* 30 MG PO ONE (07:23)
[2019-06-12] MEDS ORDERED: guaiFENesin ER TAB 600 MG PO ONE (07:24)
== END 2019-06-12 07:39 | disposition home or self-care (01) ==
LOC: ED 06:50
DX: J06.9 Acute upper respiratory infection, unspecified (principal); J44.9 Chronic obstructive pulmonary disease, unspecified; I10 Essential (primary) hypertension; Z88.1 Allergy status to other antibiotic agents; Z88.6 Allergy status to analgesic agent; Z87.891 Personal history of nicotine dependence
CPT/HCPCS: 99282; A9270-GY

== ENCOUNTER 2019-06-14 07:53 | Emergency (ER) | payer MEDICARE ==
[2019-06-14 08:01] VITALS: BP 123/74
--- NOTE | 2019-06-14 10:22 | UC ---
Respiratory Complaint HPI - HPI Summary HPI Summary: PATIENT COMPLAINING OF SINUS CONGESTION, NASAL DRAINAGE, COUGH AND FATIGUE FOR OVER A WEEK NOW. NO FEVER, NAUSEA/VOMITING. WAS SEEN IN THE ER 2 DAYS AGO AND ADVISED TO TAKE OTC MEDICATIONS FOR LIKELY VIRAL ILLNESS. DUE TO HER COMORBIDITIES AND ADVENTITIOUS LUNG SOUNDS IT WAS RECOMMENDED SHE BE FOLLOWED UP IN 2 DAYS IF HER SYMPTOMS WERE NOT IMPROVING. PATIENT FEELS SHE IS GETTING WORSE SO CAME IN TODAY. IS A FORMER SMOKER AND HAS BEEN USING HER INHALERS WITH MINIMAL RELIEF. STATES SHE FEELS IT IS MORE IN HER SINUSUS THAN IN HER LUNGS. - History of Current Complaint Chief Complaint: UCRespiratory Stated Complaint: congestion Time Seen by Provider: 06/14/19 09:49 Hx Obtained From: Patient Onset/Duration: Gradual Onset, Lasting Days, Still Present Timing: Constant Severity Initially: Moderate Severity Currently: Moderate Pain Intensity: 0 Pain Scale Used: 0-10 Numeric Character: Cough: Nonproductive Aggravating Factors: Nothing Alleviating Factors: Nothing Associated Signs And Symptoms: Positive: Wheezing, URI, Nasal Congestion, Sinus Discomfort. Negative: Dyspnea, Fever - Allergies/Home Medications Allergies/Adverse Reactions: Allergies Allergy/AdvReac Type Severity Reaction Status Date / Time aspirin Allergy Nausea And Verified 06/14/19 08:01 Vomiting erythromycin base Allergy Nausea And Verified 06/14/19 08:01 Vomiting PMH/Surg Hx/FS Hx/Imm Hx Endocrine History: Hypothyroidism Cardiovascular History: Hypertension Respiratory History: COPD - Surgical History Surgical History: Yes Surgery Procedure, Year, and Place: partial hysterectomy - Family History Known Family History: Positive: Hypertension - Social History Alcohol Use: Occasionally Substance Use Type: None Smoking Status (MU): Former Smoker Type: Cigarettes Amount Used/How Often: quit 3 months ago Length of Time of Smoking/Using Tobacco: 10 years Have You Smoked in the Last Year: No Household Exposure Type: Cigarettes - Immunization History Most Recent Influenza Vaccination: Fall 2016 Most Recent Pneumonia Vaccination: "A few years ago" Review of Systems All Other Systems Reviewed And Are Negative: Yes Constitutional: Positive: Fatigue ENT: Positive: Nasal Discharge, Sinus Congestion Respiratory: Positive: Cough Cardiovascular: Positive: Negative Gastrointestinal: Positive: Negative Physical Exam Triage Information Reviewed: Yes Appearance: Well-Appearing, No Pain Distress, Well-Nourished Vital Signs: Initial Vital Signs Temp 97.9 F 06/14/19 07:58 Pulse 94 06/14/19 07:58 Resp 18 06/14/19 07:58 BP 123/74 06/14/19 07:58 Pulse Ox 97 06/14/19 07:58 Vital Signs Reviewed: Yes Eyes: Positive: Conjunctiva Clear ENT: Positive: Hearing grossly normal, Pharynx normal, TMs normal Neck: Positive: Supple, Nontender, No Lymphadenopathy Respiratory: Positive: No respiratory distress, No accessory muscle use, Decreased breath sounds, Wheezing - END EXPIRATORY WHEEZE LEFT UPPER LUNG Cardiovascular Exam: Normal Abdomen Description: Positive: Soft Musculoskeletal: Positive: No Edema Neurological: Positive: Alert Psychological: Positive: Age Appropriate Behavior Skin: Negative: Rashes Respiratory Course/Dx - Course Course Of Treatment: SX MAY BE VIRALLY MEDIATED HOWEVER GIVEN PATIENT'S UNDERLYING LUNG CONDITION SHE IS AT INCREASED RISK OF BACTERIAL INFECTION. STATES SHE HAS BEEN GETTING WORSE OVER THE PAST 7-10 DAYS. OTC MEDICATIONS NOT HELPING. WILL COVER FOR BACTERIAL INFECTION WITH AUGMENTIN. ADVISED TO CONTINUE HER INHALERS NEEDED. SHE DECLINES CHEST X-RAY TODAY. PATIENT COUNSELED TO SEEK FOLLOW-UP IF SHE IS NOT IMPROVING WITH THIS MEDICATION OVER THE NEXT FEW DAYS. - Differential Dx/Diagnosis Provider Diagnosis: Acute rhinosinusitis Discharge ED - Sign-Out/Discharge Documenting (check all that apply): Patient Departure All imaging exams completed and their final reports reviewed: No Studies - Discharge Plan Condition: Stable Disposition: HOME Prescriptions: Amoxicillin/Clavulanate TAB* [Augmentin TAB 875*] 875 mg PO BID #20 tab Fluconazole 150 MG (NF) [Diflucan 150 mg (NF)] 150 mg PO ONCE #2 tab Patient Education Materials: Rhinosinusitis (ED) Referrals: Darya Solis MD [Primary Care Provider] - If Needed Additional Instructions: YOUR SYMPTOMS MAY BE VIRALLY MEDIATED BUT GIVEN THE LENGTH OF TIME YOU HAVE BEEN ILL AND YOUR COMORBIDITIES WE WILL COVER YOU WITH ANTIBIOTICS. IF YOU START THE MEDICINE BE SURE TO TAKE IT FOR THE FULL COURSE. REST, HYDRATE, OTC MEDS NEEDED. CONTINUE YOUR INHALERS PRESCRIBED. SEEK FOLLOW-UP WITH YOUR PCP IF YOU ARE NOT IMPROVING OVER THE NEXT 1-2 WEEKS. DIFLUCAN FOR IF YOU DEVELOP YEAST INFECTION SYMPTOMS. - Billing Disposition and Condition Condition: STABLE Disposition: Home
== END 2019-06-14 10:20 | disposition home or self-care (01) ==
LOC: UCEAST 07:53
DX: J01.90 Acute sinusitis, unspecified (principal); R53.83 Other fatigue; I10 Essential (primary) hypertension; J44.9 Chronic obstructive pulmonary disease, unspecified; Z87.891 Personal history of nicotine dependence; Z88.6 Allergy status to analgesic agent; Z88.1 Allergy status to other antibiotic agents
CPT/HCPCS: 99212; G0463

== ENCOUNTER 2020-09-13 09:00 | Inpatient (IN) ==
[~2020-09-13 09:00] MED LIST: Buffered Lidocaine 1% SYRIN 1 ml INTRADERM ONE; Dexamethasone IV 4 MG/ML VIAL 1 ml VIAL IV SLOW PU ONE; Dexamethasone IV 4 MG/ML VIAL 1 ml VIAL ONE; Lactated Ringers 1000 ml BAG 1,000 ML IV SCH; Sodium Citrate/Citric Acid LIQ 15 ML UDC ONE; Sodium Citrate/Citric Acid LIQ 15 ML UDC PO ONE; ceFAZolin 2 GM PREMIX 2 GM/50 ML BAG ONE
[2020-09-13] MEDS ORDERED: ROPIVACAINE 5 MG/ML 30 ML BTL (0.5%) ONE (10:34)
[2020-09-13] MEDS ORDERED: Midazolam 5 mg/5 ml VIAL 1 mg/ml 5 ml VIAL (5 mg) ONE (11:01)
[2020-09-13] MEDS ORDERED: Bupivacaine 0.5% SDV PF 30ML VIAL ONE (11:09)
[2020-09-13] MEDS ORDERED: Phenylephrine 40 mcg/mL 10mL (400mcg) SYRINGE ONE (11:20)
[2020-09-13] MEDS ORDERED: EPHEDrine (Pressors) 50 MG/ML VIAL ONE (11:28)
[2020-09-13] MEDS ORDERED: Acetaminophen IV 1 GM/100ML 100 ML ONE (11:38)
[2020-09-13] MEDS ORDERED: Phenylephrine IV 10 MG/ML 1 ml VIAL ONE (11:48)
[2020-09-13] MEDS ORDERED: Naloxone 0.4 mg VIAL 0.4 mg/ml 1 ml VIAL IV PRN (12:28)
[2020-09-13] MEDS ORDERED: DiMENhydriNATE IV 50 mg/ml 1 ml VIAL IV PUSH PRN (12:28)
[2020-09-13] MEDS ORDERED: oxyCODONE/Acetamin 5/325 mg TAB PO PRN (13:00)
[2020-09-13] MEDS ORDERED: diPHENhydraMINE IV 50 MG/ML 1 ml VIAL (BENADRYL) IV PRN (13:00)
[2020-09-13] MEDS ORDERED: Ondansetron 4 mg VIAL 2 MG/ML 2 ml VIAL IV PRN (13:00)
[2020-09-13] MEDS ORDERED: Lactulose 30 ml UDC PO PRN (13:00)
[2020-09-13] MEDS ORDERED: Ondansetron ODT 4 mg TAB 4 MG TAB PO PRN (13:00)
[2020-09-13] MEDS ORDERED: Morphine 2 MG/ML SYRINGE IV PRN (13:00)
[2020-09-13] MEDS ORDERED: diPHENhydraMINE 25 mg TAB PO PRN (13:00)
[2020-09-13] MEDS ORDERED: Lactated Ringers 1000 ml BAG 1,000 ML IV SCH (13:00)
[2020-09-13] MEDS ORDERED: Magnesium Hydroxide LIQ 30 ML UDC PO PRN (13:00)
[2020-09-13] MEDS ORDERED: fentaNYL 100 mcg/2 ml 50 MCG/ML VIAL ONE ×3 (13:09→15:18)
[2020-09-13] MEDS ORDERED: Propofol 10 MG/ML 20 ML BTL ONE (13:16)
[2020-09-13] MEDS ORDERED: Levalbuterol 1.25MG/0.5ML NEB.SOL ONE (13:53)
[2020-09-13] MEDS: fentaNYL 100 mcg/2 ml 50 MCG/ML VIAL IV PRN ×3 (14:29→15:18)
[2020-09-13] MEDS ORDERED: Albuterol 2.5mg/3 ml (0.083%) NEB.SOLN INH PRN (14:56)
[2020-09-13] MEDS ORDERED: Ondansetron 4 mg VIAL 2 MG/ML 2 ml VIAL ONE (16:08)
[2020-09-13] MEDS ORDERED: Piperacillin/Tazobac ADVAN 3.375 GM in NS 0.9% 100 ml BAG 100 ML IV ONE (18:00)
[2020-09-13] MEDS ORDERED: Zosyn per Pharmacy NOTE FOLLOW UP SCH (18:00)
[2020-09-13] MEDS ORDERED: ceFAZolin 1 GM ADVAN 1 GM in NS 0.9% 50 ML 50 ML IVPB SCH (19:00)
[2020-09-13] MEDS: Magnesium Hydroxide LIQ 30 ML UDC PO SCH (19:39)
[2020-09-13] MEDS: ZOSYN 3.375 GM Q8H per EXTENDED INFUSION IV SCH (22:07)
[2020-09-14] MEDS: ZOSYN 3.375 GM Q8H per EXTENDED INFUSION IV SCH ×3 (04:41→22:23)
[2020-09-14 04:53] LABS: Hematocrit 26 % (35-47); Hemoglobin 8.6 g/dL (12.0-16.0); Platelet Count 192 10^3/uL (150-450)
[2020-09-14 05:01] LABS: Calcium 8.5 mg/dL (8.6-10.3); Potassium 4.7 mmol/L (3.5-5.0)
[2020-09-14 05:07] LABS: BUN/Creatinine Ratio 16.1 (8-20); EGFR African American 55.5 (>60); EGFR Non-African American 45.8 (>60)
[2020-09-14] MEDS ORDERED: Famotidine IV 10 MG/ML 2 ml VIAL (20 mg) IV SLOW PU ONE (07:36)
[2020-09-14] MEDS ORDERED: Calcium Carb (TUMS) 500 mg CHEW TAB PO PRN (07:38)
[2020-09-14] MEDS: Magnesium Hydroxide LIQ 30 ML UDC PO SCH ×2 (07:45→21:12)
[2020-09-14] MEDS: Vitamin THERAPEUTIC TAB PO SCH (07:46)
[2020-09-14] MEDS: CMCS: Estradiol 1 mg TAB (NF) PO SCH (07:47)
[2020-09-14] MEDS ORDERED: AMLODIPINE BENAZEPRIL PO SCH (09:00)
[2020-09-14] MEDS ORDERED: Pneumococcal Vac 23-Polyvalent IM ONE (09:00)
[2020-09-14] MEDS ORDERED: Lactated Ringers 500 ml BAG 500 ML IV ONE (14:27)
[2020-09-15] MEDS: ZOSYN 3.375 GM Q8H per EXTENDED INFUSION IV SCH (06:10)
[2020-09-15 06:53] LABS: ABS Eosinophils 0.1 10^3/ul (0-0.6); ABS Lymphocytes 1.5 10^3/ul (1.0-4.8); ABS Monocytes 0.8 10^3/ul (0-0.8); ABS Neutrophils 8.5 10^3/ul (1.5-7.7); Eosinophil % 0.5 %; Hematocrit 23 % (35-47); Hemoglobin 7.7 g/dL (12.0-16.0); Lymphocyte % 13.5 %; Mean Corpuscular HGB Conc 34 g/dL (31-36); Mean Corpuscular Hemoglobin 31 pg (27-31); Mean Corpuscular Volume 90 fL (80-97); Mean Platelet Volume 8.1 fL (7.4-10.4); Platelet Count 155 10^3/uL (150-450); Red Blood Count 2.49 10^6 /uL (3.70-4.87); Red Cell Distribution Width 15 % (10-15); White Blood Count 10.8 10^3/uL (3.5-10.8)
[2020-09-15 07:09] LABS: BUN/Creatinine Ratio 17.1 (8-20); Calcium 8.3 mg/dL (8.6-10.3); EGFR African American 41.4 (>60); EGFR Non-African American 34.2 (>60); Magnesium 2.5 mg/dL (1.9-2.7); Potassium 4.5 mmol/L (3.5-5.0)
[2020-09-15] MEDS: Magnesium Hydroxide LIQ 30 ML UDC PO SCH (09:54)
[2020-09-15] MEDS: Vitamin THERAPEUTIC TAB PO SCH (09:55)
[2020-09-15] MEDS: Mometasone/Formoter 200/5 MDI INH SCH ×3 (09:56→20:04)
[2020-09-15] MEDS: CMCS: Estradiol 1 mg TAB (NF) PO SCH (09:56)
[2020-09-15 11:23] VITALS: BP 108/56
[2020-09-15 12:24] LABS: Hematocrit 24 % (35-47); Hemoglobin 8.1 g/dL (12.0-16.0)
== END 2020-09-15 16:51 | disposition home or self-care (01) | DRG 470 ==
LOC: INTOOBSV 09:00 → AA 09:00 → ICU 13:00 → SSU 09-14 17:46
PROVIDERS: ADMIT Orthopaedic Surgery Adult Reconstructive Orthopaedic Surgery; ATTEND Orthopaedic Surgery Adult Reconstructive Orthopaedic Surgery

== ENCOUNTER 2022-06-12 10:32 | Inpatient (IN) ==
[2022-06-12] MEDS ORDERED: Lactated Ringers 1000 ml BAG 1,000 ML IV ONE (11:49)
[2022-06-12] MEDS ORDERED: Morphine 4 MG/ML VIAL (1 ml) IV ONE ×2 (11:50→13:42)
[2022-06-12] MEDS ORDERED: Ondansetron 4 mg VIAL 2 MG/ML 2 ml VIAL IV ONE (12:03)
[2022-06-12 12:10] LABS: ABS Eosinophils 0.1 10^3/ul (0-0.6); ABS Lymphocytes 0.4 10^3/ul (1.0-4.8); ABS Monocytes 0.3 10^3/ul (0-0.8); ABS Neutrophils 10.5 10^3/ul (1.5-7.7); Eosinophil % 0.9 %; Hematocrit 31 % (35-47); Hemoglobin 9.7 g/dL (12.0-16.0); Lymphocyte % 3.5 %; Mean Corpuscular HGB Conc 32 g/dL (31-36); Mean Corpuscular Hemoglobin 28 pg (27-31); Mean Corpuscular Volume 90 fL (80-97); Mean Platelet Volume 7.6 fL (7.4-10.4); Platelet Count 235 10^3/uL (150-450); Red Blood Count 3.45 10^6 /uL (3.70-4.87); Red Cell Distribution Width 15 % (10-15); White Blood Count 11.3 10^3/uL (3.5-10.8)
[2022-06-12 12:22] LABS: INR 1.07 (0.89-1.11)
[2022-06-12 13:01] LABS: Albumin 3.5 g/dL (3.2-5.2); Albumin/Globulin Ratio 1.4 (1-3); Calcium 8.8 mg/dL (8.6-10.3); Globulin 2.5 g/dL (2-4); Potassium 4.1 mmol/L (3.5-5.0); Total Bilirubin 0.7 mg/dL (0.2-1.0); eGFR CKD-EPI 65.7 (>60)
[2022-06-12] MEDS ORDERED: Al Hydrox/Mg Hydrox/Simet LIQ 30 ML UDC PO PRN (14:22)
[2022-06-12] MEDS ORDERED: Albuterol HFA INHALER 8 gm MDI INH PRN (14:25)
[2022-06-12] MEDS ORDERED: Fluticas/Salmet 230/21 HFA(NF) MDI INH PRN (14:55)
[2022-06-12] MEDS: Ondansetron 4 mg VIAL 2 MG/ML 2 ml VIAL IV PRN (17:49)
[2022-06-12] MEDS ORDERED: Mometasone/Formoter 200/5 MDI INH PRN (17:53)
[2022-06-12] MEDS: Senna TAB 8.6 mg TAB PO SCH (19:43)
[2022-06-12] MEDS ORDERED: Fluticas/Salmet 230/21 HFA(NF) MDI INH SCH (21:00)
[2022-06-13] MEDS: Lidocaine PATCH 5% PATCH TRANSDERM SCH (08:07)
[2022-06-13] MEDS: CMCS: Estradiol 1 mg TAB (NF) PO SCH (08:07)
[2022-06-13] MEDS ORDERED: Estradiol 0.5 mg TAB (NF) PO SCH (09:00)
[2022-06-13] MEDS: Ondansetron 4 mg VIAL 2 MG/ML 2 ml VIAL IV PRN (09:06)
[2022-06-13] MEDS ORDERED: Iron Sucrose 200 MG in NS 0.9% 100 ml BAG 100 ML IVPB ONE (10:30)
[2022-06-13] MEDS: Enoxaparin 40 MG/0.4 ML SYR SUBCUT SCH (14:08)
[2022-06-13] MEDS ORDERED: Zoledronic Acid 4 MG in NS 0.9% 100 ml BAG 100 ML IVPB ONE (15:00)
[2022-06-13] MEDS ORDERED: Morphine ER 15 mg TAB ** extended release PO PRN (16:43)
[2022-06-13] MEDS: Senna TAB 8.6 mg TAB PO SCH (20:12)
[2022-06-13] MEDS ORDERED: Morphine ER 15 mg TAB ** extended release PO SCH (21:00)
[2022-06-14] MEDS: Polyethylene Glycol 3350 17 GM PACKET PO SCH (08:34)
[2022-06-14] MEDS: CMCS: Estradiol 1 mg TAB (NF) PO SCH (08:41)
[2022-06-14] MEDS: Lidocaine PATCH 5% PATCH TRANSDERM SCH (09:34)
[2022-06-14] MEDS: Enoxaparin 40 MG/0.4 ML SYR SUBCUT SCH (13:08)
[2022-06-14] MEDS: Ondansetron 4 mg VIAL 2 MG/ML 2 ml VIAL IV PRN (18:24)
[2022-06-14] MEDS: Senna TAB 8.6 mg TAB PO SCH (19:57)
[2022-06-15] MEDS: Polyethylene Glycol 3350 17 GM PACKET PO SCH (08:07)
[2022-06-15] MEDS: CMCS: Estradiol 1 mg TAB (NF) PO SCH (08:08)
[2022-06-15] MEDS: Lidocaine PATCH 5% PATCH TRANSDERM SCH (08:09)
[2022-06-15] MEDS: Enoxaparin 40 MG/0.4 ML SYR SUBCUT SCH (13:34)
[2022-06-15] MEDS: Senna TAB 8.6 mg TAB PO SCH (19:28)
[2022-06-15] MEDS: Ondansetron 4 mg VIAL 2 MG/ML 2 ml VIAL IV PRN (23:37)
[2022-06-16] MEDS: Polyethylene Glycol 3350 17 GM PACKET PO SCH (07:40)
[2022-06-16] MEDS: CMCS: Estradiol 1 mg TAB (NF) PO SCH (07:41)
[2022-06-16] MEDS: Lidocaine PATCH 5% PATCH TRANSDERM SCH (07:45)
[2022-06-16 10:57] LABS: Mean Platelet Volume 7.6 fL (7.4-10.4); Platelet Count 217 10^3/uL (150-450)
[2022-06-16 11:15] LABS: INR 0.98 (0.89-1.11)
[2022-06-16] MEDS ORDERED: fentaNYL 100 mcg/2 ml 50 MCG/ML VIAL ONE (14:27)
[2022-06-16] MEDS ORDERED: Midazolam 2 mg/2 ml VIAL 1 mg/ml 2 ml VIAL (2 mg) ONE (14:27)
[2022-06-16] MEDS ORDERED: ceFAZolin 1 GM ADVAN 1 GM ADDV.VIAL IVPB ONE (14:27)
[2022-06-16] MEDS: Senna TAB 8.6 mg TAB PO SCH (20:21)
[2022-06-17 06:55] VITALS: BP 103/67
[2022-06-17] MEDS: Polyethylene Glycol 3350 17 GM PACKET PO SCH (08:29)
[2022-06-17] MEDS: Lidocaine PATCH 5% PATCH TRANSDERM SCH (08:29)
[2022-06-17] MEDS: CMCS: Estradiol 1 mg TAB (NF) PO SCH (08:34)
== END 2022-06-17 10:10 | disposition home health service (06) | DRG 543 ==
LOC: ED 10:32 → INTOOBSV 17:36 → SUATTDRO 17:36 → MED 17:36 → SUATTDRO 06-13 16:51
PROVIDERS: ADMIT Internal Medicine; ATTEND Hospitalist

== ENCOUNTER 2022-07-24 16:22 | Inpatient (IN) ==
[2022-07-24 18:37] LABS: ABS Lymphocytes 0.6 10^3/ul (1.0-4.8); ABS Monocytes 0.1 10^3/ul (0-0.8); ABS Neutrophils 6.8 10^3/ul (1.5-7.7); Eosinophil % 0.4 %; Hematocrit 31 % (35-47); Hemoglobin 9.4 g/dL (12.0-16.0); Lymphocyte % 7.7 %; Mean Corpuscular HGB Conc 31 g/dL (31-36); Mean Corpuscular Hemoglobin 30 pg (27-31); Mean Corpuscular Volume 97 fL (80-97); Nucleated Red Blood Cells % 0.1; Platelet Count 159 10^3/uL (150-450); Red Blood Count 3.18 10^6 /uL (3.70-4.87); Red Cell Distribution Width 18 % (10-15); White Blood Count 7.5 10^3/uL (3.5-10.8)
[2022-07-24 19:03] LABS: ALT 13 U/L (7-52); Albumin 3.2 g/dL (3.2-5.2); Albumin/Globulin Ratio 1.1 (1-3); Alkaline Phosphatase 100 U/L (35-149); Blood Urea Nitrogen 19 mg/dL (6-24); CO2 Carbon Dioxide 24 mmol/L (22-32); Calcium 8.5 mg/dL (8.6-10.3); Chloride 105 mmol/L (101-111); Glucose 93 mg/dL (70-100); Sodium 137 mmol/L (135-145); Total Protein 6.2 g/dL (6.4-8.9); eGFR CKD-EPI 70.1 (>60)
[2022-07-24 19:19] LABS: Anion Gap 8 mmol/L (2-11)
[2022-07-24] MEDS ORDERED: Iohexol 350 (CONTRAST) 500 ML MDV IV ONE (19:46)
[2022-07-24] MEDS ORDERED: Morphine 4 MG/ML VIAL (1 ml) IV ONE (21:43)
[2022-07-24 22:17] LABS: Potassium Redraw 3.7 mmol/L (3.5-5.0)
[2022-07-24] MEDS ORDERED: cefTRIAXone 1 gm/50 mL D5W 1 GM/50 ML BAG IV ONE (22:22)
[2022-07-24] MEDS ORDERED: Azithromycin 500 mg/250 ml NS 500 MG/250 ML BAG IVPB ONE (22:22)
[2022-07-24 23:22] LABS: High Sensitivity Troponin 1 Hr 368 pg/mL (<15)
[2022-07-25 05:56] LABS: ABS Lymphocytes 0.4 10^3/ul (1.0-4.8); ABS Monocytes 0.1 10^3/ul (0-0.8); ABS Neutrophils 7.8 10^3/ul (1.5-7.7); Eosinophil % 0.2 %; Hematocrit 26 % (35-47); Hemoglobin 8.5 g/dL (12.0-16.0); Lymphocyte % 4.7 %; Mean Corpuscular HGB Conc 32 g/dL (31-36); Mean Corpuscular Hemoglobin 30 pg (27-31); Mean Corpuscular Volume 92 fL (80-97); Mean Platelet Volume 6.8 fL (7.4-10.4); Platelet Count 198 10^3/uL (150-450); Red Blood Count 2.86 10^6 /uL (3.70-4.87); Red Cell Distribution Width 18 % (10-15); White Blood Count 8.4 10^3/uL (3.5-10.8)
[2022-07-25] MEDS: Enoxaparin 40 MG/0.4 ML SYR SUBCUT SCH ×2 (06:53→20:04)
[2022-07-25 06:58] LABS: Magnesium 1.7 mg/dL (1.9-2.7); Potassium 3.9 mmol/L (3.5-5.0); eGFR CKD-EPI 77.2 (>60)
[2022-07-25] MEDS: CMCS: Estradiol 1 mg TAB (NF) PO SCH (07:15)
[2022-07-25 07:16] LABS: Folate 19.85 ng/mL (5.90-24.80)
[2022-07-25] MEDS ORDERED: Magnesium Sulfate IV 3 GM in NS 0.9% 100 ml BAG 100 ML IVPB ONE (08:23)
[2022-07-25] MEDS: Mometasone/Formoter 100/5 MDI INH SCH ×2 (09:53→17:07)
[2022-07-25] MEDS: Albuterol 2.5mg/3 ml (0.083%) NEB.SOLN INH PRN ×2 (17:14→22:25)
[2022-07-26 05:18] LABS: Hematocrit 22 % (35-47); Hemoglobin 7.4 g/dL (12.0-16.0); Mean Corpuscular HGB Conc 33 g/dL (31-36); Mean Corpuscular Hemoglobin 30 pg (27-31); Mean Corpuscular Volume 90 fL (80-97); Mean Platelet Volume 6.6 fL (7.4-10.4); Platelet Count 152 10^3/uL (150-450); Red Blood Count 2.47 10^6 /uL (3.70-4.87); Red Cell Distribution Width 17 % (10-15); White Blood Count 7.1 10^3/uL (3.5-10.8)
[2022-07-26] MEDS: Albuterol 2.5mg/3 ml (0.083%) NEB.SOLN INH PRN ×2 (06:11→12:19)
[2022-07-26] MEDS: Mometasone/Formoter 100/5 MDI INH SCH ×2 (06:14→19:13)
[2022-07-26 06:29] LABS: Calcium 7.9 mg/dL (8.6-10.3); Magnesium 2.1 mg/dL (1.9-2.7); Potassium 4.1 mmol/L (3.5-5.0); eGFR CKD-EPI 81.9 (>60)
[2022-07-26] MEDS: CMCS: Estradiol 1 mg TAB (NF) PO SCH (09:35)
[2022-07-26] MEDS ORDERED: Furosemide 40 mg/4 ml IV VIAL IV ONE (11:48)
[2022-07-26] MEDS: cefTRIAXone 1 gm/50 mL D5W 1 GM/50 ML BAG IV SCH (13:21)
[2022-07-26] MEDS: Nystatin SUSPENSION 100,000 UNITS/ML UDC PO SCH ×2 (17:09→21:28)
[2022-07-26] MEDS: Enoxaparin 40 MG/0.4 ML SYR SUBCUT SCH (21:27)
[2022-07-27 05:05] LABS: ABS Lymphocytes 0.5 10^3/ul (1.0-4.8); ABS Monocytes 0.1 10^3/ul (0-0.8); ABS Neutrophils 6.4 10^3/ul (1.5-7.7); Eosinophil % 0.2 %; Hematocrit 22 % (35-47); Hemoglobin 7.2 g/dL (12.0-16.0); Mean Corpuscular HGB Conc 33 g/dL (31-36); Mean Corpuscular Hemoglobin 30 pg (27-31); Mean Corpuscular Volume 90 fL (80-97); Mean Platelet Volume 6.9 fL (7.4-10.4); Platelet Count 140 10^3/uL (150-450); Red Blood Count 2.44 10^6 /uL (3.70-4.87); Red Cell Distribution Width 17 % (10-15)
[2022-07-27 05:15] LABS: Calcium 8.2 mg/dL (8.6-10.3); Potassium 3.6 mmol/L (3.5-5.0)
[2022-07-27 05:21] LABS: eGFR CKD-EPI 87.2 (>60)
[2022-07-27] MEDS: Mometasone/Formoter 100/5 MDI INH SCH ×2 (07:40→18:48)
[2022-07-27] MEDS: CMCS: Estradiol 1 mg TAB (NF) PO SCH (10:05)
[2022-07-27] MEDS: Nystatin SUSPENSION 100,000 UNITS/ML UDC PO SCH ×4 (10:09→20:23)
[2022-07-27] MEDS: cefTRIAXone 1 gm/50 mL D5W 1 GM/50 ML BAG IV SCH (13:12)
[2022-07-27] MEDS: Enoxaparin 40 MG/0.4 ML SYR SUBCUT SCH (20:23)
[2022-07-28 07:05] LABS: Calcium 7.9 mg/dL (8.6-10.3); Potassium 3.7 mmol/L (3.5-5.0); eGFR CKD-EPI 94.7 (>60)
[2022-07-28] MEDS: Mometasone/Formoter 100/5 MDI INH SCH ×2 (07:47→19:55)
[2022-07-28] MEDS: CMCS: Estradiol 1 mg TAB (NF) PO SCH (09:57)
[2022-07-28] MEDS: Nystatin SUSPENSION 100,000 UNITS/ML UDC PO SCH ×4 (09:57→21:51)
[2022-07-28] MEDS: Senna TAB 8.6 mg TAB PO PRN (09:59)
[2022-07-28] MEDS: cefTRIAXone 1 gm/50 mL D5W 1 GM/50 ML BAG IV SCH (12:29)
[2022-07-28 12:37] LABS: ABS Lymphocytes 0.2 10^3/ul (1.0-4.8); ABS Monocytes 0.1 10^3/ul (0-0.8); ABS Neutrophils 3.1 10^3/ul (1.5-7.7); Eosinophil % 0.1 %; Hematocrit 23 % (35-47); Hemoglobin 7.5 g/dL (12.0-16.0); Lymphocyte % 5.8 %; Mean Corpuscular HGB Conc 33 g/dL (31-36); Mean Corpuscular Hemoglobin 29 pg (27-31); Mean Corpuscular Volume 90 fL (80-97); Nucleated Red Blood Cells % 0.1; Platelet Count 104 10^3/uL (150-450); Red Blood Count 2.56 10^6 /uL (3.70-4.87); Red Cell Distribution Width 17 % (10-15); White Blood Count 3.4 10^3/uL (3.5-10.8)
[2022-07-28] MEDS ORDERED: Magnesium Hydroxide LIQ 30 ML UDC PO PRN (16:21)
[2022-07-28] MEDS: Lidocaine PATCH 5% PATCH TRANSDERM SCH (16:53)
[2022-07-28] MEDS: Enoxaparin 40 MG/0.4 ML SYR SUBCUT SCH (21:52)
[2022-07-29] MEDS: Mometasone/Formoter 100/5 MDI INH SCH ×2 (07:37→19:30)
[2022-07-29] MEDS: Nystatin SUSPENSION 100,000 UNITS/ML UDC PO SCH ×4 (09:59→22:16)
[2022-07-29] MEDS: CMCS: Estradiol 1 mg TAB (NF) PO SCH (10:00)
[2022-07-29] MEDS: Lidocaine PATCH 5% PATCH TRANSDERM SCH (10:13)
[2022-07-29] MEDS: cefTRIAXone 1 gm/50 mL D5W 1 GM/50 ML BAG IV SCH (11:56)
[2022-07-29] MEDS ORDERED: Ondansetron 4 mg VIAL 2 MG/ML 2 ml VIAL IV ONE (12:18)
[2022-07-29] MEDS: Enoxaparin 40 MG/0.4 ML SYR SUBCUT SCH (22:16)
[2022-07-30] MEDS: Mometasone/Formoter 100/5 MDI INH SCH (07:40)
[2022-07-30] MEDS: Senna TAB 8.6 mg TAB PO PRN (07:50)
[2022-07-30] MEDS: Lidocaine PATCH 5% PATCH TRANSDERM SCH (09:02)
[2022-07-30] MEDS: Nystatin SUSPENSION 100,000 UNITS/ML UDC PO SCH (09:03)
[2022-07-30 09:59] LABS: ABS Lymphocytes 0.8 10^3/ul (1.0-4.8); ABS Monocytes 0.2 10^3/ul (0-0.8); ABS Neutrophils 3.5 10^3/ul (1.5-7.7); Eosinophil % 0.1 %; Hematocrit 27 % (35-47); Lymphocyte % 17.4 %; Mean Corpuscular HGB Conc 34 g/dL (31-36); Mean Corpuscular Hemoglobin 30 pg (27-31); Mean Corpuscular Volume 90 fL (80-97); Mean Platelet Volume 7.6 fL (7.4-10.4); Platelet Count 59 10^3/uL (150-450); Red Blood Count 2.97 10^6 /uL (3.70-4.87); Red Cell Distribution Width 16 % (10-15); White Blood Count 4.5 10^3/uL (3.5-10.8)
[2022-07-30 11:21] VITALS: BP 128/79
== END 2022-07-30 12:00 | disposition home health service (06) | DRG 193 ==
LOC: ED 16:22 → SUATTDRO 07-25 00:27 → EDHOLD 07-25 00:27 → MED 07-25 08:34
PROVIDERS: ADMIT Internal Medicine; ATTEND Internal Medicine

== ENCOUNTER 2022-08-18 14:08 | Inpatient (IN) ==
[2022-08-18 15:22] LABS: Hematocrit 25 % (35-47); Mean Corpuscular HGB Conc 32 g/dL (31-36); Mean Corpuscular Hemoglobin 29 pg (27-31); Mean Corpuscular Volume 90 fL (80-97); Red Blood Count 2.74 10^6 /uL (3.70-4.87); Red Cell Distribution Width 17 % (10-15); White Blood Count 10.5 10^3/uL (3.5-10.8)
[2022-08-18 15:27] LABS: Albumin 2.9 g/dL (3.2-5.2); Calcium 7.5 mg/dL (8.6-10.3); Magnesium 1.8 mg/dL (1.9-2.7); Total Bilirubin 0.5 mg/dL (0.2-1.0)
[2022-08-18 15:33] LABS: Albumin/Globulin Ratio 0.9 (1-3); Creatinine, Serum 0.95 mg/dL (0.51-0.95); Globulin 3.2 g/dL (2-4); Total Protein 6.1 g/dL (6.4-8.9); eGFR CKD-EPI 65.7 (>60)
[2022-08-18 15:49] LABS: ABS Lymphocytes 0.3 10^3/ul (1.0-4.8); ABS Monocytes 0.1 10^3/ul (0-0.8); Eosinophil % 0.1 %; Lymphocyte % 2.8 %; Mean Platelet Volume 7.2 fL (7.4-10.4); Platelet Count 65 10^3/uL (150-450)
[2022-08-18] MEDS ORDERED: Polyethylene Glycol 3350 BTL 238 GM BTL PO PRN (17:38)
[2022-08-18] MEDS ORDERED: Ondansetron ODT 4 mg TAB 4 MG TAB PO PRN (19:35)
[2022-08-18] MEDS ORDERED: Polyethylene Glycol 3350 17 GM PACKET PO PRN (20:00)
[2022-08-18] MEDS: NS 0.9% 1000 ml BAG 1,000 ML IV SCH (20:21)
[2022-08-18] MEDS: Morphine ER 15 mg TAB ** extended release PO SCH (20:32)
[2022-08-18] MEDS: Morphine 2 MG/ML SYRINGE IV PRN (20:42)
[2022-08-18] MEDS ORDERED: Senna TAB 8.6 mg TAB PO SCH (21:00)
[2022-08-19 05:36] LABS: ABS Lymphocytes 0.2 10^3/ul (1.0-4.8); ABS Monocytes 0.1 10^3/ul (0-0.8); Eosinophil % 0.1 %; Hematocrit 21 % (35-47); Hemoglobin 6.8 g/dL (12.0-16.0); Lymphocyte % 2.9 %; Mean Corpuscular HGB Conc 32 g/dL (31-36); Mean Corpuscular Hemoglobin 29 pg (27-31); Mean Corpuscular Volume 92 fL (80-97); Mean Platelet Volume 7.5 fL (7.4-10.4); Platelet Count 42 10^3/uL (150-450); Red Blood Count 2.31 10^6 /uL (3.70-4.87); Red Cell Distribution Width 18 % (10-15); White Blood Count 7.3 10^3/uL (3.5-10.8)
[2022-08-19 06:02] LABS: Albumin 2.5 g/dL (3.2-5.2); Calcium 6.8 mg/dL (8.6-10.3); Creatinine, Serum 0.89 mg/dL (0.51-0.95); Globulin 2.6 g/dL (2-4); Magnesium 1.8 mg/dL (1.9-2.7); Potassium 4.4 mmol/L (3.5-5.0); Total Bilirubin 0.4 mg/dL (0.2-1.0); Total Protein 5.1 g/dL (6.4-8.9)
[2022-08-19] MEDS: Morphine ER 15 mg TAB ** extended release PO SCH ×2 (07:52→19:48)
[2022-08-19] MEDS: Morphine 2 MG/ML SYRINGE IV PRN ×4 (08:57→19:53)
[2022-08-19 10:03] LABS: Activated Partial Thrombo Time 36.3 seconds (26.0-38.0); INR 2.03 (0.88-1.18)
[2022-08-19] MEDS: NS 0.9% 1000 ml BAG 1,000 ML IV SCH (10:04)
[2022-08-19] MEDS ORDERED: Phytonadione Oral Solution 5 MG/25 ML UDC PO ONE (11:18)
[2022-08-19 14:56] LABS: Hematocrit 22 % (35-47); Hemoglobin 7.2 g/dL (12.0-16.0); Mean Corpuscular HGB Conc 33 g/dL (31-36); Mean Corpuscular Hemoglobin 30 pg (27-31); Mean Corpuscular Volume 92 fL (80-97); Red Blood Count 2.39 10^6 /uL (3.70-4.87); Red Cell Distribution Width 17 % (10-15); White Blood Count 7.3 10^3/uL (3.5-10.8)
[2022-08-19 15:23] LABS: INR 2.04 (0.88-1.18)
[2022-08-19] MEDS ORDERED: Phytonadione IV (Adult) 10 MG in NS 0.9% 50 ML 50 ML IV ONE (15:40)
[2022-08-19 16:13] LABS: ABS Lymphocytes 0.2 10^3/ul (1.0-4.8); ABS Monocytes 0.1 10^3/ul (0-0.8); Acanthocytes 1+; Anisocytosis 2+; Eosinophil % 0.1 %; Lymphocyte % 2.4 %; Mean Platelet Volume 7.4 fL (7.4-10.4); Microcytosis 1+; Platelet Count 33 10^3/uL (150-450)
[2022-08-19] MEDS: Senna TAB 8.6 mg TAB PO SCH (19:50)
[2022-08-20] MEDS: Morphine 2 MG/ML SYRINGE IV PRN ×3 (00:06→15:02)
[2022-08-20] MEDS: NS 0.9% 1000 ml BAG 1,000 ML IV SCH (00:11)
[2022-08-20 07:04] LABS: Calcium 6.8 mg/dL (8.6-10.3); Creatinine, Serum 0.86 mg/dL (0.51-0.95); Potassium 4.4 mmol/L (3.5-5.0)
[2022-08-20 07:10] LABS: ABS Lymphocytes 0.3 10^3/ul (1.0-4.8); ABS Monocytes 0.1 10^3/ul (0-0.8); ABS Neutrophils 4.9 10^3/ul (1.5-7.7); Eosinophil % 0.1 %; Hematocrit 20 % (35-47); Hemoglobin 6.4 g/dL (12.0-16.0); Lymphocyte % 5.2 %; Mean Corpuscular HGB Conc 32 g/dL (31-36); Mean Corpuscular Hemoglobin 30 pg (27-31); Mean Corpuscular Volume 93 fL (80-97); Mean Platelet Volume 7.9 fL (7.4-10.4); Platelet Count 18 10^3/uL (150-450); Red Blood Count 2.15 10^6 /uL (3.70-4.87); Red Cell Distribution Width 17 % (10-15); White Blood Count 5.3 10^3/uL (3.5-10.8)
[2022-08-20 07:19] LABS: INR 1.35 (0.88-1.18)
[2022-08-20] MEDS: Morphine ER 15 mg TAB ** extended release PO SCH ×2 (07:53→20:33)
[2022-08-20] MEDS: Morphine ORAL CONCENTRATE 5 MG/0.25 ML ORAL.SYRIN PO PRN (12:21)
[2022-08-20] MEDS ORDERED: Furosemide 40 mg/4 ml IV VIAL IV SLOW PU ONE (14:52)
[2022-08-20] MEDS ORDERED: Magnesium Hydroxide LIQ 30 ML UDC PO PRN (15:33)
[2022-08-20] MEDS ORDERED: Polyethylene Glycol 3350 17 GM PACKET PO PRN (15:33)
[2022-08-20] MEDS ORDERED: Senna TAB 8.6 mg TAB PO PRN (15:33)
[2022-08-20] MEDS: Senna TAB 8.6 mg TAB PO SCH (20:34)
[2022-08-20] MEDS: Magnesium Hydroxide LIQ 30 ML UDC PO SCH (20:34)
[2022-08-20] MEDS: Albuterol 2.5mg/3 ml (0.083%) NEB.SOLN INH PRN (21:34)
[2022-08-20] MEDS ORDERED: cefTRIAXone 1 gm/50 mL D5W 1 GM/50 ML BAG IV SCH (21:45)
[2022-08-20] MEDS ORDERED: cefTRIAXone 1 GM Q24H (ADVAN) IVPB SCH (22:00)
[2022-08-20 22:06] LABS: ABS Lymphocytes 0.2 10^3/ul (1.0-4.8); Eosinophil % 0.1 %; Hematocrit 24 % (35-47); Hemoglobin 7.8 g/dL (12.0-16.0); Lymphocyte % 6.8 %; Mean Corpuscular HGB Conc 33 g/dL (31-36); Mean Corpuscular Hemoglobin 29 pg (27-31); Mean Corpuscular Volume 90 fL (80-97); Platelet Count 9 10^3/uL (150-450); Red Blood Count 2.66 10^6 /uL (3.70-4.87); Red Cell Distribution Width 16 % (10-15); White Blood Count 3.2 10^3/uL (3.5-10.8)
[2022-08-20] MEDS ORDERED: DOXYcycline 100 MG in NS 0.9% 250 ml 250 ML IVPB ONE (22:24)
[2022-08-21 05:31] LABS: Mean Platelet Volume 7.4 fL (7.4-10.4); Platelet Count 16 10^3/uL (150-450)
[2022-08-21 05:35] LABS: Calcium 7.4 mg/dL (8.6-10.3); Potassium 3.9 mmol/L (3.5-5.0)
[2022-08-21 05:40] LABS: Creatinine, Serum 0.93 mg/dL (0.51-0.95); eGFR CKD-EPI 67.4 (>60)
[2022-08-21 06:14] LABS: INR 1.26 (0.88-1.18)
[2022-08-21] MEDS: Morphine ER 15 mg TAB ** extended release PO SCH ×2 (07:53→20:15)
[2022-08-21] MEDS: Magnesium Hydroxide LIQ 30 ML UDC PO SCH ×2 (07:54→20:16)
[2022-08-21] MEDS ORDERED: Piperacillin/Tazobac ADVAN 3.375 GM in NS 0.9% 100 ml BAG 100 ML IV ONE (08:32)
[2022-08-21] MEDS ORDERED: Furosemide 20 mg/2 ml IV VIAL IV SLOW PU ONE (08:33)
[2022-08-21 08:54] LABS: C Reactive Protein 206.77 mg/L (<8.01)
[2022-08-21] MEDS ORDERED: Zosyn per Pharmacy NOTE FOLLOW UP SCH (09:00)
[2022-08-21 10:49] LABS: Hematocrit 24 % (35-47); Hemoglobin 7.8 g/dL (12.0-16.0); Mean Corpuscular HGB Conc 32 g/dL (31-36); Mean Corpuscular Hemoglobin 29 pg (27-31); Mean Corpuscular Volume 90 fL (80-97); Platelet Count 51 10^3/uL (150-450); Red Blood Count 2.68 10^6 /uL (3.70-4.87); Red Cell Distribution Width 16 % (10-15)
[2022-08-21 11:39] LABS: ABS Lymphocytes 0.3 10^3/ul (1.0-4.8); ABS Neutrophils 2.7 10^3/ul (1.5-7.7); Eosinophil % 0.1 %
[2022-08-21 11:40] LABS: Albumin 2.9 g/dL (3.2-5.2); Calcium 7.4 mg/dL (8.6-10.3); Creatinine, Serum 0.84 mg/dL (0.51-0.95); Globulin 2.8 g/dL (2-4); Potassium 3.5 mmol/L (3.5-5.0); Total Bilirubin 0.8 mg/dL (0.2-1.0); Total Protein 5.7 g/dL (6.4-8.9); eGFR CKD-EPI 76.1 (>60)
[2022-08-21] MEDS ORDERED: Lidocaine 1% MPF 5 ML VIAL INJ ONE (15:00)
[2022-08-21] MEDS: Morphine ORAL CONCENTRATE 5 MG/0.25 ML ORAL.SYRIN PO PRN (16:09)
[2022-08-21] MEDS: ZOSYN 3.375 GM Q8H per EXTENDED INFUSION IV SCH ×2 (16:10→23:48)
[2022-08-21] MEDS: Albuterol 2.5mg/3 ml (0.083%) NEB.SOLN INH PRN (16:25)
[2022-08-21 17:48] LABS: Body Fluid Appearance Bloody; Body Fluid Mono 3 %; Body Fluid Source Pleural Fluid; Body Fluid Total Cells Counted 200
[2022-08-21 17:49] LABS: Body Fluid Color Red
[2022-08-21 17:54] LABS: Body Fluid WBC 518 /mcL
[2022-08-21] MEDS: Senna TAB 8.6 mg TAB PO SCH (20:16)
[2022-08-21 20:46] LABS: Mean Platelet Volume 6.1 fL (7.4-10.4); Platelet Count 64 10^3/uL (150-450)
[2022-08-22] MEDS: Morphine ORAL CONCENTRATE 5 MG/0.25 ML ORAL.SYRIN PO PRN ×2 (01:13→06:58)
[2022-08-22] MEDS: ZOSYN 3.375 GM Q8H per EXTENDED INFUSION IV SCH ×2 (08:57→15:52)
[2022-08-22] MEDS: Magnesium Hydroxide LIQ 30 ML UDC PO SCH ×3 (08:57→21:42)
[2022-08-22] MEDS: Morphine ER 15 mg TAB ** extended release PO SCH ×2 (08:58→21:31)
[2022-08-22] MEDS: Nystatin SUSPENSION 100,000 UNITS/ML UDC PO SCH ×5 (08:58→21:43)
[2022-08-22 10:06] LABS: ABS Lymphocytes 0.3 10^3/ul (1.0-4.8); Hematocrit 22 % (35-47); Hemoglobin 7.1 g/dL (12.0-16.0); Lymphocyte % 11.9 %; Mean Corpuscular HGB Conc 32 g/dL (31-36); Mean Corpuscular Hemoglobin 29 pg (27-31); Mean Corpuscular Volume 89 fL (80-97); Mean Platelet Volume 6.5 fL (7.4-10.4); Platelet Count 42 10^3/uL (150-450); Red Cell Distribution Width 16 % (10-15); White Blood Count 2.3 10^3/uL (3.5-10.8)
[2022-08-22 10:35] LABS: Albumin 2.6 g/dL (3.2-5.2); Calcium 7.1 mg/dL (8.6-10.3); Creatinine, Serum 0.8 mg/dL (0.51-0.95); Globulin 2.6 g/dL (2-4); Potassium 3.4 mmol/L (3.5-5.0); Total Bilirubin 0.6 mg/dL (0.2-1.0); Total Protein 5.2 g/dL (6.4-8.9); eGFR CKD-EPI 80.7 (>60)
[2022-08-22] MEDS: Morphine 2 MG/ML SYRINGE IV PRN (12:28)
[2022-08-22] MEDS: Senna TAB 8.6 mg TAB PO SCH (21:31)
[2022-08-23] MEDS: ZOSYN 3.375 GM Q8H per EXTENDED INFUSION IV SCH ×3 (00:53→16:05)
[2022-08-23] MEDS: Morphine ORAL CONCENTRATE 5 MG/0.25 ML ORAL.SYRIN PO PRN ×2 (06:31→12:52)
[2022-08-23] MEDS: Morphine ER 15 mg TAB ** extended release PO SCH ×2 (08:10→19:33)
[2022-08-23] MEDS: Nystatin SUSPENSION 100,000 UNITS/ML UDC PO SCH ×4 (08:21→19:33)
[2022-08-23] MEDS: Magnesium Hydroxide LIQ 30 ML UDC PO SCH ×2 (08:21→19:27)
[2022-08-23 12:33] LABS: Fluid Type, Protein, Total PLEURAL; Glucose, BF 97 mg/dL; Total Protein, BF 3.5 g/dL
[2022-08-23 14:52] LABS: Lactate Dehydrogenase, BF 540 U/L
[2022-08-23] MEDS: Senna TAB 8.6 mg TAB PO SCH (19:34)
[2022-08-24] MEDS: ZOSYN 3.375 GM Q8H per EXTENDED INFUSION IV SCH ×3 (02:08→18:20)
[2022-08-24] MEDS: Morphine 2 MG/ML SYRINGE IV PRN (02:08)
[2022-08-24 06:18] LABS: ABS Neutrophils 0.4 10^3/ul (1.5-7.7); Hematocrit 20 % (35-47); Hemoglobin 6.3 g/dL (12.0-16.0); Mean Corpuscular HGB Conc 32 g/dL (31-36); Mean Corpuscular Hemoglobin 29 pg (27-31); Mean Corpuscular Volume 91 fL (80-97); Mean Platelet Volume 7.4 fL (7.4-10.4); Platelet Count 8 10^3/uL (150-450); Red Blood Count 2.16 10^6 /uL (3.70-4.87); Red Cell Distribution Width 16 % (10-15); White Blood Count 0.5 10^3/uL (3.5-10.8)
[2022-08-24 07:22] LABS: Magnesium 2.5 mg/dL (1.9-2.7); Potassium 3.7 mmol/L (3.5-5.0)
[2022-08-24 07:25] LABS: Creatinine, Serum 1.43 mg/dL (0.51-0.95); eGFR CKD-EPI 40.2 (>60)
[2022-08-24 07:26] LABS: ABS Lymphocytes 0.2 10^3/ul (1.0-4.8); Lymphocyte % 30.8 %; Nucleated Red Blood Cells % 0.2
[2022-08-24] MEDS: Morphine ER 15 mg TAB ** extended release PO SCH ×2 (09:41→20:46)
[2022-08-24] MEDS: Nystatin SUSPENSION 100,000 UNITS/ML UDC PO SCH ×5 (09:42→19:26)
[2022-08-24] MEDS: Magnesium Hydroxide LIQ 30 ML UDC PO SCH ×3 (09:42→20:25)
[2022-08-24] MEDS: Senna TAB 8.6 mg TAB PO SCH (20:47)
[2022-08-25] MEDS: ZOSYN 3.375 GM Q8H per EXTENDED INFUSION IV SCH ×3 (00:04→16:06)
[2022-08-25 05:11] LABS: Hematocrit 22 % (35-47); Hemoglobin 7.2 g/dL (12.0-16.0); Mean Corpuscular HGB Conc 33 g/dL (31-36); Mean Corpuscular Hemoglobin 28 pg (27-31); Mean Corpuscular Volume 85 fL (80-97); Mean Platelet Volume 7.4 fL (7.4-10.4); Platelet Count 18 10^3/uL (150-450); Red Blood Count 2.59 10^6 /uL (3.70-4.87); Red Cell Distribution Width 20 % (10-15); White Blood Count 0.5 10^3/uL (3.5-10.8)
[2022-08-25 05:30] LABS: ABS Lymphocytes 0.2 10^3/ul (1.0-4.8); ABS Neutrophils 0.2 10^3/ul (1.5-7.7); Eosinophil % 0.1 %; Lymphocyte % 45.7 %
[2022-08-25 06:05] LABS: Magnesium 2.5 mg/dL (1.9-2.7); Potassium 3.7 mmol/L (3.5-5.0)
[2022-08-25 06:11] LABS: Creatinine, Serum 1.42 mg/dL (0.51-0.95); eGFR CKD-EPI 40.5 (>60)
[2022-08-25] MEDS: Magnesium Hydroxide LIQ 30 ML UDC PO SCH ×2 (08:40→22:37)
[2022-08-25] MEDS: Morphine ER 15 mg TAB ** extended release PO SCH (08:40)
[2022-08-25] MEDS: Nystatin SUSPENSION 100,000 UNITS/ML UDC PO SCH ×4 (08:41→21:14)
[2022-08-25] MEDS: Morphine 2 MG/ML SYRINGE IV PRN (15:40)
[2022-08-25] MEDS: Senna TAB 8.6 mg TAB PO SCH (22:38)
[2022-08-25] MEDS: Morphine ORAL CONCENTRATE 5 MG/0.25 ML ORAL.SYRIN PO PRN (23:32)
[2022-08-26] MEDS: ZOSYN 3.375 GM Q8H per EXTENDED INFUSION IV SCH ×3 (00:10→15:29)
[2022-08-26] MEDS: Morphine ORAL CONCENTRATE 5 MG/0.25 ML ORAL.SYRIN PO PRN ×4 (06:07→17:54)
[2022-08-26] MEDS: Nystatin SUSPENSION 100,000 UNITS/ML UDC PO SCH ×4 (08:13→20:51)
[2022-08-26] MEDS: Magnesium Hydroxide LIQ 30 ML UDC PO SCH ×2 (08:13→21:06)
[2022-08-26] MEDS: Polyethylene Glycol 3350 17 GM PACKET PO SCH (12:33)
[2022-08-26] MEDS: Senna TAB 8.6 mg TAB PO SCH ×2 (20:44→21:06)
[2022-08-27] MEDS: ZOSYN 3.375 GM Q8H per EXTENDED INFUSION IV SCH ×2 (02:01→08:20)
[2022-08-27] MEDS: Morphine ORAL CONCENTRATE 5 MG/0.25 ML ORAL.SYRIN PO PRN ×2 (03:36→06:27)
[2022-08-27 07:28] VITALS: BP 94/64
[2022-08-27] MEDS: Nystatin SUSPENSION 100,000 UNITS/ML UDC PO SCH (08:21)
[2022-08-27] MEDS: Polyethylene Glycol 3350 17 GM PACKET PO SCH (08:21)
[2022-08-27] MEDS: Magnesium Hydroxide LIQ 30 ML UDC PO SCH (08:21)
== END 2022-08-27 11:35 | disposition home or self-care (01) | DRG 180 ==
LOC: CHOA 14:08 → SUATTDRO 18:47 → MEDTELE 18:47 → MED 08-24 16:28
PROVIDERS: ADMIT Internal Medicine Medical Oncology; ATTEND Internal Medicine